=== PATIENT | female | born 1940 | race Caucasian/White ===

== ENCOUNTER 2023-04-06 12:59 | Outpatient (OUT) | payer MEDICARE, MEDICAID, SELFPAY ==
[2023-04-06 14:35] LABS: Albumin Level 3.7 g/dL (3.4-5.0); Anion Gap 14.7; BUN Creatinine Ratio 16.9; Calcium 9.3 mg/dL (8.5-10.1); Carbon Dioxide 25.3 mmol/L (21.0-32.0); Chloride 104 mmol/L (98-107); Chol HDL Ratio 4.7; Cholesterol 249 mg/dL (<=200); Estimated GFR (African America >60 (>=60); Estimated GFR (Non-African Ame >60 (>=60); Glucose 118 mg/dL (74-106); HDL Cholesterol 53 mg/dL (40-60); Phosphorus 3.2 mg/dL (2.6-4.7); Sodium 140 mmol/L (136-145); Triglycerides 195 mg/dL (<=150)
[2023-04-06 14:48] LABS: Creatinine Urine Random 124.31 mg/dL (20.00-300.00); Microalbum Creatinine Ratio Ur 24.9 mg/g (0.0-29.9); Microalbumin Urine Random 3.1 mg/dL (<=30.0)
== END 2023-04-06 13:00 ==
LOC: LAB 12:59
PROVIDERS: PCP Radiology Diagnostic Radiology; Visit Provider Internal Medicine
DX: E11.59 Type 2 diabetes mellitus with other circulatory complications (principal); Z68.36 Body mass index [BMI] 36.0-36.9, adult; E55.9 Vitamin D deficiency, unspecified
CPT/HCPCS: 36415; 80061; 80069; 82043; 82306; 82570

== ENCOUNTER 2023-04-06 13:30 | Outpatient (OUT) | payer MEDICARE, MEDICAID, SELFPAY ==
--- NOTE | 2023-04-06 | VEIN_ITS ---
Patient: MARCELO GOTTLIEB Exam Date: 04/06/2023 : 1940 Gender:F Ordering : DR HANNA RICKETTS M.D. Admission #: [id number] Family : Order #: [id number] CLICK HERE TO VIEW EXAM RADIOLOGY REPORT PROCEDURE: [facility] - OFFICE VISIT INITIAL COMPARISON: None. PROGRESS NOTES: [age] year old female who presents with a 10 year history of dilated bulging veins, leg pain, burning, swelling, muscle cramping, and edema. The patient's right leg symptoms are worse than the left. There has been a progression of symptoms over time. This increases with prolonged dependency. The patient describes an improvement with rest and elevation. The patient denies any signs and symptoms to suggest arterial ischemia. The patient describes a family history of varicose veins on maternal side. The patient has drinking and smoking history of colon no tobacco use or alcohol consumption.. Patient has a past medical history significant for left breast cancer, left knee osteoarthritis, diabetic retinopathy, diabetes skin ulcer, hypertension. The patient denies a history of deep venous thrombus or pulmonary embolus. See separate history and physical for medication list. No prior treatment for varicose or spider veins. Current use of compression stockings. After review of nurse notes, history and physical exam I discussed at length the pathophysiology of venous hypertension and possible treatments, therapies and strategies available. We discussed at length the importance of elevating the lower extremities above the level of the heart, increased physical activity and compression stocking use. Ultrasound venous reflux study performed today was discussed at length with the patient. The report demonstrates abnormally dilated and incompetent great saphenous veins bilaterally, right small saphenous vein, bilateral incompetent building maintenance mechanic veins, and multiple incompetent in dilated branch saphenous varicosities. PHYSICAL EXAM: The right leg demonstrates large varicosities, multiple spider veins, nonhealing skin wound/ ulceration, mild edema, mild skin discoloration. The left leg demonstrates several prominent varicosities, a few scattered spider veins, no ulceration, moderate edema, mild skin discoloration. Both thighs, legs and feet were symmetrically warm to the touch. Good posterior tibial and dorsalis pedis pulses were present bilaterally. IMPRESSION: 1. Bilateral lower extremity venous insufficiency 2. Bilateral lower extremity varicose veins 3. Bilateral lower extremity subcutaneous edema 4. No flow significant arterial disease 5. CEAP: C4a, EC, AP, ID PLAN: 1. Continued use of compression stockings 2. Elevated legs and increased physical activity symptomatic relief 3. Endovenous laser ablation of right great saphenous vein, left great saphenous vein, right small saphenous vein, right mid calf building maintenance mechanic vein near wound, bilateral microfoam chemical ablation for numerous incompetent branch saphenous varicosities, bilateral scleral therapy for reticular and spider veins. Nurse notes, history and physical were reviewed and confirmed, see attached forms. The nurse was present throughout the physical exam and consultation Dictated by: Adonis Martinez M.D. on 04/06/2023 at 16:06 Approved by: Adonis Martinez M.D. on 04/06/2023 at 16:13
--- NOTE | 2023-04-06 13:45 | VEIN_ITS ---
Patient: MARCELO GOTTLIEB Exam Date: 04/06/2023 : 1940 Gender:F Ordering : DR HANNA RICKETTS M.D. Admission #: [id number] Family : Order #: [id number] CLICK HERE TO VIEW EXAM RADIOLOGY REPORT PROCEDURE: VC EXT VENOUS REFLUX GIA LMTD COMPARISON: None. INDICATIONS: Pain due to varicose veins of bilateral legs I83.813 TECHNIQUE: Duplex imaging of the lower extremity to assess the deep and superficial venous system for the presence of deep or superficial venous incompetence and to document the location and severity of disease. The study includes evaluation of the great saphenous vein (GSV), anterior accessory saphenous vein (AASV) and small saphenous vein (SSV). Patient scanned in reverse Trendelenburg and standing. FINDINGS: RIGHT LOWER EXTREMITY: Saphenofemoral Junction Reflux: Yes 11.4mm 0.9 sec GSV: Diam (mm) Reflux/ Time (sec) Proximal Thigh 9.0 Yes 1.4 Mid Thigh 5.1 Yes 1.2 Distal Thigh 3.3 Yes 0.5 Prox Calf 5.2 Yes 3.6 Mid Calf 2.8 Yes 2.1 Saphenopopliteal Junction Reflux: 5.6mm Yes 0.5 SSV: Proximal Calf 5.5 Yes 0.6 Mid Calf 4.0 Yes 0.9 AASV: Proximal Thigh 3.5 No Mid Thigh 2.3 Yes 0.4 Distal Thigh Thrombi: No acute or chronic thrombus. Compressibility: Normal. Flow: Mild deep venous reflux. Preforator: Distal medial lower leg near wound 4.1 mm, 0.6s reflux. Mid medial lower leg 4.6 mm, 0.5s reflux. Tech Note: Incompetent varicose vein off of GSV proximal medial thigh measures 9.5 mm with 1.4s reflux. Medial knee varicose vein measures 6.3 mm with 4.0s reflux. Mid medial lower leg varicose vein off of asphalt paving supervisor measures 5.2 mm with 1.1s reflux. Varicose vein distal posterior medial lower leg measures 3.6 mm with 1.0s reflux. LEFT LOWER EXTREMITY: Saphenofemoral Junction Reflux: Yes 11.2 mm 1.6 sec GSV: Diam (mm) Reflux/Time (sec) Proximal Thigh 9.2 Yes 1.2 Mid Thigh 5.4 Yes 2.8 Distal Thigh 7.1 Yes 3.8 Prox Calf 7.8 Yes 2.7 Mid Calf 5.2 Yes 4.0 Saphenopopliteal Junction Relux: 3.6 mm Yes 0.2 SSV: Proximal Calf 2.7 Yes 0.4 Mid Calf 3.9 Yes 1.9 AASV: Proximal Thigh 3.2 Yes 0.6 Mid Thigh 3.1 Yes 0.5 Distal Thigh Thrombi: No acute or chronic thrombus. Compressibility: Normal. Flow: Mild deep venous reflux. Lubrication Equipment Servicer:Medial ankle 2.9 mm, 1.6s reflux. Dist/medial lower leg 3.4mm, 3.8s reflux. Mid/medial lower leg 3.4mm, 3.8s reflux. Mid post calf 3.2mm, 0.6s reflux. Tech Note: Incompetent varicose vein mid medial lower leg measures 4.9 mm with 1.6s reflux. Proximal medial lower leg varicose vein measures 4.0 mm with 0.4s reflux. Varicose vein distal anterior lower leg measures 4.3 mm with 1.1s reflux. Distal medial lower leg varicose vein measures 4.0 mm with 0.6s reflux. CONCLUSION: 1. Abnormally dilated and incompetent bilateral great saphenous veins and right small saphenous vein. 2. Numerous abnormally dilated and incompetent branch saphenous varicosities bilaterally. 3. Several abnormally dilated incompetent asphalt paving supervisor veins bilaterally. 4. Consultation for endovenous ablation is recommended. Dictated by: Adonis Martinez M.D. on 04/06/2023 at 15:07 Approved by: Adonis Martinez M.D. on 04/06/2023 at 16:06
== END 2023-04-06 13:31 ==
LOC: VC 13:30
PROVIDERS: PCP Radiology Diagnostic Radiology; Visit Provider Radiology Diagnostic Radiology
DX: I83.813 Varicose veins of bilateral lower extremities with pain (principal)
CPT/HCPCS: 93970; G0463

== ENCOUNTER 2023-10-05 13:34 | Outpatient (OUT) | payer MEDICARE, MEDICAID, SELFPAY ==
--- NOTE | 2023-10-05 13:50 | US_ITS ---
The [address] [address] Patient Name: MARCELO GOTTLIEB MRN: [id number] date: 1940 Sex: F Assigned Patient Location: LAB Current Patient Location: LAB Accession/Order Number: [id number] Exam Date: 10/05/2023 13:51 Report Date: 10/05/2023 15:26 At the request of: JACK NAZARIO Procedure: US right upper quadrant Ultrasound abdomen right upper quadrant HISTORY: Right Upper Quadrant Pain R10.11 COMPARISON: None. TECHNIQUE: Dedicated transabdominal right upper quadrant ultrasound was performed. FINDINGS: The gallbladder is nondistended and without focal wall abnormality. There is no discrete gallstone identified. No sludge is seen. The gallbladder wall measures 2 mm in thickness. No pericholecystic fluid is seen, and the sonographic Ingram's sign is negative. The proximal common bile duct measures 6 mm in diameter. There is no intrahepatic bile duct dilatation. There is diffusely increased echogenicity throughout the entire liver. No discrete liver lesion is seen. Normal hepatopedal flow the main portal vein. The visualized pancreas is normal. Portions of the pancreas are obscured by overlying bowel gas. The right kidney measures 12.7 x 7.0 x 5.9 cm with cortical thinning. There is a small renal sinus cyst at the lower pole measuring 1.1 cm. There is no hydronephrosis in the right kidney. There is no fluid in the right upper quadrant. US/US right upper quadrant IMPRESSION: 1. Normal gallbladder. There are no stones or sludge, and no sonographic evidence of acute cholecystitis. 2. The diffuse fatty infiltration of the liver and normal caliber common bile duct at 6 mm. 3. Right kidney with a 1.1 cm renal sinus cyst and diffuse cortical thinning. No hydronephrosis. Electronically authenticated by: SIMRAN BARRY Date: 10/05/2023 15:26
--- NOTE | 2023-10-05 13:50 | XR_ITS ---
The [address] [address] Patient Name: MARCELO GOTTLIEB MRN: [id number] date: 1940 Sex: F Assigned Patient Location: LAB Current Patient Location: Accession/Order Number: [id number] Exam Date: 10/05/2023 14:55 Report Date: 10/06/2023 22:40 At the request of: JACK NAZARIO Procedure: XR lumbar spine 6V w bending EXAM: XR lumbar spine 6V w bending HISTORY: Acute Right Sided Low Back Pain M54.41 COMPARISON: None. TECHNIQUE: 7 views lumbar spine with flexion and extension FINDINGS: There are 5 nonrib-bearing lumbar-type vertebral bodies. Likely pseudoarticulation of right L5 transverse process with the sacral alae. Vertebral body heights and sagittal alignment are preserved. No spondylolisthesis on dynamic imaging. No pars defects. Multilevel degenerative disc disease most severe at L2-3 and L5-S1. Incidental note of aortic vascular calcification. Diffuse facet arthrosis at the lower lumbar levels. XR/XR lumbar spine 6V w bending IMPRESSION: Multilevel degenerative disc disease most severe at L2-3 and L5-S1. No spondylolisthesis on dynamic imaging. Electronically authenticated by: GEORGE OSEI Date: 10/06/2023 22:40
[2023-10-05 14:10] LABS: Basophils Percent Auto 0.3 % (0.2-2.0); Eosinophils Absolute Auto 0.2 10^3/uL (0.0-0.7); Eosinophils Percent Auto 1.5 % (0.9-7.0); Hematocrit 44.2 % (36.0-48.0); Hemoglobin 13.9 g/dL (12.0-16.0); Immature Granulocytes Abs Auto 0.02 10^3/uL (0.00-0.03); Immature Granulocytes Pct Auto 0.2 % (0.0-0.5); Lymphocytes Absolute Auto 2.7 10^3/uL (1.2-3.8); Lymphocytes Percent Auto 24.9 % (20.5-60.0); Mean Corpuscular HGB Conc 31.4 g/dL (29.9-35.2); Mean Corpuscular Volume 95.5 fL (81.0-99.0); Mean Platelet Volume 10.1 fL (9.5-13.5); Monocytes Absolute Auto 0.9 10^3/uL (0.3-0.8); Neutrophils Absolute Auto 6.9 10^3/uL (1.4-6.5); Neutrophils Percent Auto 65.1 % (43.0-75.0); Platelet Count 226 10^3/uL (150-450); Red Blood Count 4.63 10^6/uL (4.20-5.40); Red Cell Distribution Width 12.7 % (11.0-15.0); White Blood Count 10.7 10^3/uL (4.0-11.0)
[2023-10-05 15:30] LABS: Alanine Aminotransferase 19 U/L (14-59); Albumin Level 3.7 g/dL (3.4-5.0); Alkaline Phosphatase 95 U/L (46-116); Anion Gap 14.8; Aspartate Amino Transferase 16 U/L (15-37); Bilirubin Total 0.5 mg/dL (0.2-1.0); Calcium 9.2 mg/dL (8.5-10.1); Carbon Dioxide 25.3 mmol/L (21.0-32.0); Chloride 106 mmol/L (98-107); Estimated GFR (African America >60 (>=60); Estimated GFR (Non-African Ame >60 (>=60); Globulin 3.8 g/dL; Glucose 99 mg/dL (74-106); Potassium 4.1 mmol/L (3.5-5.1); Sodium 142 mmol/L (136-145); Total Protein 7.5 g/dL (6.4-8.2)
== END 2023-10-05 13:35 | disposition home or self-care (01) ==
LOC: LAB 13:34
PROVIDERS: PCP Internal Medicine; Visit Provider Internal Medicine
DX: E11.65 Type 2 diabetes mellitus with hyperglycemia (principal); I10 Essential (primary) hypertension; R10.11 Right upper quadrant pain; M54.41 Lumbago with sciatica, right side; N28.1 Cyst of kidney, acquired; M51.36 Other intervertebral disc degeneration, lumbar region
CPT/HCPCS: 36415; 72114; 76705; 80053; 85025

== ENCOUNTER 2024-02-06 13:26 | Outpatient (OUT) | payer MEDICARE, MEDICAID, SELFPAY ==
--- NOTE | 2024-02-06 13:30 | MR_ITS ---
[place] [id number] Patient Name: MARCELO GOTTLIEB MRN: [id number] date: 1940 Sex: F Assigned Patient Location: MRI Current Patient Location: MRI Accession/Order Number: [id number] Exam Date: 02/06/2024 14:00 Report Date: 02/06/2024 15:26 At the request of: JACK NAZARIO Procedure: MR lumbar spine wo con EXAMINATION: MR lumbar spine wo con HISTORY: Spondylosis Of Lumbosacral Spine, Low Back Pain COMPARISON: No relevant comparison available. TECHNIQUE: A variety of imaging planes and parameters were utilized for visualization of suspected pathology. FINDINGS: For the purposes of numbering, sagittal T2 image # 9 extends from the T11 vertebral body superiorly to the S2-S3 level inferiorly. PARASPINAL AREA: Normal with no visible mass. BONES: Normal alignment with no acute fracture, spondylolisthesis or bone edema CORD/CAUDA EQUINA: Normal caliber, contour, and signal intensity. 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 L1-L2: No significant disc/facet abnormality, spinal stenosis, or foraminal stenosis. L2-L3: Mild to moderate disc space narrowing with endplate sclerosis. Moderate diffuse disc/osteophyte complex with posterior central disc herniation of the protrusion type extending up to 4 mm. No central or foraminal stenosis L3-L4: Disc desiccation. Moderate posterior disc/osteophyte complex. Severe ligamentum flavum hypertrophy and facet osteoarthropathy. Moderate to severe trefoil narrowing of the central canal with crowding of the nerve roots, best seen on axial image 22. Mild right foraminal stenosis. No left foraminal stenosis L4-L5: Asymmetric disc space narrowing with disc collapse along the left with endplate sclerosis. Moderate diffuse disc/osteophyte complex. Moderate to severe ligamentum flavum hypertrophy and facet osteoarthropathy. No significant central canal stenosis. Moderate right and mild left foraminal stenosis L5-S1: No significant disc/facet abnormality, spinal stenosis, or foraminal stenosis. MR/MR lumbar spine wo con IMPRESSION: Moderate to severe central canal stenosis at L3-L4 Mild right L3-L4 foraminal stenosis Moderate right and mild left L4-L5 foraminal stenosis Electronically authenticated by: HANNA RICKETTS Date: 02/06/2024 15:26
--- OUTSIDE RECORDS SUMMARY | 2024-02-06 13:39 | XMS_ITS | CCD ---
Author Organization [facility] Care Team Providers Care Repair Tech Name Role Phone TIMUR, DR SANTIAGO Attending Unavailable BALL, DR SANTIAGO Referring Unavailable BALL, DR SANTIAGO Admitting Unavailable BALL, DR SANTIAGO Primary Care Unavailable BALL, DR SANTIAGO Consulting Unavailable ZIEBER, DR MARIXA Tilley Consulting Unavailable MARCOS, TYLOR Attending Unavailable MARCOS, TYLOR Admitting Unavailable MARCOS, TYLOR Consulting Unavailable BALL, DR SANTIAGO Primary Care Unavailable BALL, DR SANTIAGO Consulting Unavailable BALL, DR SANTIAGO Attending Unavailable BALL, DR SANTIAGO Admitting Unavailable BALL, DR SANTIAGO Primary Care Unavailable Timur, Nilton Unavailable Allergies Allergy Classification Reported Allergen(s) Allergy Type Date of Onset Reaction(s) Facility (1 source) Desonide Drug Allergy 10-14-20 13 [facility] (1 source) Latex Drug allergy (disorder) 04-27-20 17 [facility] (1 source) Silicone Drug allergy (disorder) 04-27-20 17 [facility] (8 sources) Adhesive Bandages Drug allergy Unknown [employer] Other (7 sources) atorvastatin Drug Allergy 01-23-20 24 Unknown, Unknown Reaction [facility] (7 sources) Cephalexin Drug Allergy 01-23-20 24 Unknown, Unknown Reaction [facility] (6 sources) Singulair *ANTIASTHMATIC AND BRONCHODILATOR AGENTS Propensity to adverse reactions Unknown [employer] Other (1 source) Adhesive agent Allergy to substance 01-23-20 Unknown Reaction [facility] (1 source) Singulair *ANTIASTHMATIC AND B Allergy to substance 01-20-20 Unknown Reaction [facility] Medications Current Medications Medication Drug Class(es) Dates Sig (Normalized) Sig (Original) acetaminophen 325 mg oral capsule (9 sources) Start: 01-20-2024 take 1 capsule by mouth four times daily Acetaminophen (Tylenol) 325 mg capsule Active 325 MG PO Four times daily January 20, 2024 12:00am Tylenol Active Allergy (8 sources) Allergy Active celecoxib 200 mg oral capsule (5 sources) Nonsteroidal Anti-inflammatory Drug Start: 01-20-2024 take 200 mg by mouth once daily Celecoxib Active 200 MG PO Daily January 20, 2024 12:00am Start: 09-29-2023 [address] [facility] every twenty-four hours Celecoxib 200 MG 1 capsule with food Orally Once a day for 30 days Sep, Active cetirizine hydrochloride 10 mg oral tablet (1 source) Histamine-1 Receptor Antagonist Start: 01-20-2024 take 1 tablet by mouth once daily Cetirizine (24hour Allergy) 10 mg tablet Active 10 MG PO Daily January 20, 2024 12:00am Dietary Manage Prod - Edge Molder (8 sources) Dietary Manage P tessa - Edge Molder Active Dietary Supplement (1 source) Start: 01-20-2024 Dietary Supplement Active CAP PO January 20, 2024 12:00am diphenhydrAMINE hydrochloride 25 mg oral tablet (9 sources) Histamine-1 Receptor Antagonist Start: 01-20-2024 take 1 tablet by mouth once daily at bedtime Diphenhydramine Hcl (Benadryl Allergy) 25 mg tablet Active 25 MG PO Daily at bedtime January 20, 2024 12:00am Benadryl Active docusate sodium 50 mg / sennosides, penitentiary 8.6 mg oral tablet (1 source) Start: 01-20-2024 take 1 tablet by mouth once daily at bedtime Sennosides-Docusate Sodium (Stimulant Laxative Plus) 8.6-50 mg tablet Active 1 TAB-CAP PO Daily at bedtime January 20, 2024 12:00am 0.5 ml dulaglutide 1.5 mg/ml auto-injector (8 sources) GLP-1 Receptor Agonist Start: 01-20-2024 Dulaglutide (Trulicity) 0.75 mg/0.5 mL pen injector Active 0.75 MG SUBCUT every week January 20, 2024 12:00am Trulicity 0.75 M G/0.5ML as directed Subcutaneous weekly Active fluticasone propionate 0.05 mg/actuat metered dose nasal spray (9 sources) Corticosteroid Start: 01-20-2024 Fluticasone Pr opionate Active 1 SPRAY INTRANASAL Daily January 20, 2024 12:00am Start: 12-08-2022 take 1 spray(s) nasa l route once daily Fluticasone Propionate 50 MCG/ACT 1 spray in each nostril Nasally Once a day for 30 day(s) Nov, Active Start: 12-08-2022 take 1 spray(s) nasa l route once daily Fluticasone Propionate 50 MCG/ACT 1 spray in each nostril Nasally Once a day for 30 day(s) Nov, Active furosemide 20 mg oral tablet (1 source) Loop Diuretic take 1 tablet by mouth once daily Furosemide 20 MG 1 tablet Orally Once a day Active hydroCHLOROthiazide 12.5 mg oral tablet (6 sources) Thiazide Diuretic Start: take 12.5 mg by mouth once daily Hydrochlorothiazide Active 12.5 MG PO Daily January 20, 2024 12:00am take 1 tablet by mouth once zee y hydroCHLOROthiazide 12.5 mg TAKE ONE TABLET BY MOUTH DAILY Active 1.5 ml insulin glargine 300 unt/ml pen injector (8 sources) Insulin Analog Start: 02-24-2017 Toujeo SoloSta r 300 UNIT/ML 45 units Subcutaneous at HS February, Active Start: 02-24-2017 inject 25 [IU] by moe bcutaneous injection at bedtime Toujeo SoloStar 300 UNIT/ML 25 units Subcutaneous at HS February, Active Insulin Glargine U-300 Conc (1 source) Start: 01-20-2024 inject 45 [IU] by subcutaneous injection once daily at bedtime Insulin Glargine U-300 Conc Active 45 UNIT SUBCUT Daily at bedtime January 20, 2024 12:00am 3 ml insulin lispro 100 unt/ml pen injector (8 sources) Insulin Analog Start: 02-21-2017 inject 100 [IU] by subcutaneous injection before mealtime HumaLOG KwikPen 100 UNIT/ML 8-10-12 units ac plus ISS#2 Subcutaneous February, Active Insulin Lispro (Humalog Kwikpen Insulin) 100 unit/mL insulin pen (1 source) Start: 03-29-2024 inject 1 dose by subcutaneous injection before mealtime Insulin Lispro (Humalog Kwikpen Insulin) 100 unit/mL insulin pen Active 1 sliding scale dose SUBCUT Use as Directed January 20, 2024 12:00am 8-10-12 units ac plus ISS#2 Subcutaneous lactase 3000 unt chewable tablet (9 sources) Start: 01-20-2024 take 1 tablet by mouth once Lactase (Lactaid) 3,000 unit tablet Active 3000 UNIT PO 3x/Day before meals January 20, 2024 12:00am administer with first bite of dairy food Lactaid Active linaclotide 0.072 mg oral capsule (8 sources) Guanylate Cyclase-C Agonist Start: 01-20-2024 take 72 ug by mouth once daily Linaclotide Active 72 MCG PO Daily January 20, 2024 12:00am Start: 04-15-2023 Linzess 72 MCG 1 capsule at least 30 minutes before the first meal of the day on an empty stomach Orally Once a day Mar, Active Start: 04-15-2023 Linzess 72 MCG 1 capsule at least 30 minutes before the first meal of the day on an empty stomach Orally Once a day Mar, Active linagliptin 5 mg oral tablet (1 source) Dipeptidyl Peptidase 4 Inhibitor Start: 02-21-2017 take 1 tablet by mouth every twenty-four hours Tradjenta 5 MG 1 tablet Orally Once a day for 30 day(s) February, Active lisinopril 5 mg oral tablet (9 sources) Angiotensin Converting Enzyme Inhibitor Start: 01-20-2024 take 5 mg by mouth once daily Lisinopril Active 5 MG PO Daily January 20, 2024 12:00am take 1 tablet by leonard th every twenty-four hours Lisinopril 5 MG 1 tablet Orally Once a day Active mupirocin 0.02 mg/mg topical ointment (9 sources) RNA Synthetase Inhibitor Antibacterial Start: 01-20-2024 Mupirocin Active 1 APPLIC TOPICAL Twice daily January 20, 2024 12:00am Start: 12-08-2022 Mupirocin 2 % 1 application Externally Twice a day for 10 days Nov, Active potassium chloride 10 meq extended release oral tablet (9 sources) Start: 01-20-2024 take 10 mEq by mouth once daily Potassium Chloride Active 10 MEQ PO Daily January 20, 2024 12:00am take 1 tablet by leonard th every twenty-four hours Potassium Chloride ER 10 MEQ 1 tablet with food Orally Once a day Active Red Yeast Rice (8 sources) Red Yeast Rice A ctive red yeast rice 600 mg oral tablet (1 source) Start: 01-20-2024 take 600 mg by mouth once daily Red Yeast Rice Active 600 MG PO Daily January 20, 2024 12:00am give with meal/snack Stimulant Laxative (8 sources) Stimulant Laxati ve Active Completed/Discontinued Medications Medication Drug Class(es) Dates Sig (Normalized) Sig (Original) amoxicillin 875 mg oral tablet (8 sources) Penicillin-class Antibacterial take 1 tablet by mouth every twelve hours Amoxicillin 875 MG 1 tablet Orally every 12 hrs Not-Taking/PRN Problems Active Problems Problem Classification Problem Date Documented Da te Episodic/Chronic Abdominal pain (3 sources) Epigastric pain; Translations: [Epigastric pain] Onset: 06-21-2018 Episodic Acute bronchitis (2 sources) Acute bronchitis; Translations: [Acute bronchitis due to other specified organisms] Episodic Administrative/social admission (1 source) Dietary counseling and surveillance; Translations: [DIETARY COUNSELING AND SURVEILLANCE] Onset: 12-29-2021 Episodic Calculus of urinary tract (1 source) H/O: urinary stone; Translations: [Personal history of urinary calculi] Episodic Cancer of breast (2 sources) Carcinoma in situ of breast; Translations: [Unspecified type of carcinoma in situ of unspecified breast] Onset: 05-20-2014 Chronic Chronic kidney disease (1 source) Chronic kidney disease stage 3; Translations: [Chronic kidney disease, stage 3 unspecified] Onset: 10-10-2018 Chronic Chronic ulcer of skin (17 sources) Non-pressure chronic ulcer of unspecified part of right lower leg with unspecified severity; Translations: [Chronic ulcer of skin of ankle] Chronic Diabetes mellitus with complications (20 sources) Type 2 diabetes mellitus with other circulatory complications; Translations: [Type 2 diabetes mellitus with hyperglycemia] Onset: 05-18-2021 Chronic Diseases of white blood cells (1 source) Leukocytosis; Translations: [Elevated white blood cell count, unspecified] Onset: 04-27-2017 Chronic Disorders of lipid metabolism (16 sources) Mixed hyperlipidemia; 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 ] Onset: 10[birth year]24-1961 Chronic Essential hypertension (20 sources) Essential (primary) hypertension; Translations: [Essential hypertension] Onset: 05-21-2021 Chronic Fluid and electrolyte disorders (1 source) Hypokalemia; Translations: [Hypokalemia] Episodic Genitourinary symptoms and ill-defined conditions (14 sources) Mixed urinary incontinence; Translations: [Mixed incontinence] Chronic Genitourinary symptoms and ill-defined conditions (2 sources) Dysuria; Translations: [Dysuria] Onset: 06-20-2017 Episodic Immunizations and screening for infectious disease (1 source) Vaccination given; Translations: [Encounter for immunization] Episodic Malaise and fatigue (8 sources) Fatigue; Translations: [Other fatigue] Episodic Menopausal disorders (1 source) Primary ovarian failure; Translations: [Other primary ovarian failure] Onset: 02-20-2018 Chronic Neoplasms of unspecified nature or uncertain behavior (2 sources) 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; 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] Onset: 03-01-2017 Episodic Nutritional deficiencies (9 sources) Vitamin D deficiency, unspecified; Translations: [Vitamin D deficiency] Onset: 12-29-2021 Chronic Osteoarthritis (17 sources) Osteoarthritis of knee; Translations: [Unilateral primary osteoarthritis, left knee] Chronic Other aftercare (8 sources) Long-term current 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; Translations: [prison (current) 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] Episodic Other aftercare (3 sources) intermission coordinator (current) 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 Episodic Other aftercare (1 source) Long-term current use of drug therapy; Translations: [Other prison (current) drug therapy] Episodic Other diseases of veins and lymphatics (1 source) Lymphedema; Translations: [Lymphedema, not elsewhere classified] Chronic Other diseases of veins and lymphatics (1 source) Venous insufficiency of leg; Translations: [Venous insufficiency (chronic) (peripheral)] 01-21-2024 Episodic Other diseases of veins and lymphatics (1 source) Venous insufficiency (chronic) (peripheral); Translations: [Venous (peripheral) insufficiency, unspecified] 01-23-2024 Episodic Other gastrointestinal disorders (8 sources) Chronic idiopathic constipation; Translations: [Chronic idiopathic constipation] 01-20-2024 Chronic Other gastrointestinal disorders (3 sources) Chronic idiopathic constipation Chronic Other hematologic conditions (1 source) Splenic cyst; Translations: [Cyst of spleen] Episodic Other injuries and conditions due to external causes (1 source) History of fall; Translations: [History of falling] Episodic Other non-epithelial cancer of skin (8 sources) Squamous cell carcinoma of skin of face; Translations: [Squamous cell carcinoma of skin of unspecified parts of face] Onset: 09-01-2020 Episodic Other nutritional; endocrine; and metabolic disorders (8 sources) Morbid obesity; Translations: [Morbid (severe) obesity due to excess calories] Chronic Other nutritional; endocrine; and metabolic disorders (8 sources) Body mass index 40+ - severely obese; Translations: [Body mass index (BMI) 40.0-44.9, adult] Chronic Other nutritional; endocrine; and metabolic disorders (7 sources) Severe obesity; Translations: [Morbid (severe) obesity due to excess calories] Chronic Other nutritional; endocrine; and metabolic disorders (7 sources) Body mass index 30+ - obesity; Translations: [Body mass index (BMI) 38.0-38.9, adult] Chronic Other nutritional; endocrine; and metabolic disorders (3 sources) Morbid (severe) obesity due to excess calories Chronic Other nutritional; endocrine; and metabolic disorders (3 sources) Body mass index (BMI) 38.0-38.9, adult Chronic Other nutritional; endocrine; and metabolic disorders (1 source) Obesity; Translations: [Obesity, unspecified] Chronic Other nutritional; endocrine; and metabolic disorders (1 source) Obesity caused by energy imbalance; Translations: [Morbid (severe) obesity due to excess calories] 01-20-2024 Chronic Other screening for suspected conditions (not mental disorders or infectious disease) (2 sources) Encounter for screening mammogram for malignant neoplasm of breast Episodic Other skin disorders (5 sources) Localized swelling, mass and lump, left upper limb; Translations: [LOC SWELL MASS LUMP LT UPPER LIMB] Onset: 12-30-2021 Episodic Other skin disorders (9 sources) Alopecia; Translations: [Nonscarring hair loss, unspecified] 01-20-2024 Episodic Other upper respiratory disease (9 sources) Vasomotor rhinitis; Translations: [Vasomotor rhinitis] 01-20-2024 Chronic Retinal detachments; defects; vascular occlusion; and retinopathy (1 source) Venous retinal branch occlusion; Translations: [Tributary (branch) retinal vein occlusion, unspecified eye, stable] Chronic Spondylosis; intervertebral disc disorders; other back problems (10 sources) Cervical spondylosis without myelopathy; Translations: [Spondylosis without myelopathy or radiculopathy, cervical region] Chronic Spondylosis; intervertebral disc disorders; other back problems (7 sources) Acute back pain with sciatica; Translations: [Lumbago with sciatica, right side] Episodic Thyroid disorders (9 sources) Non-toxic nodular goiter; Translations: [Nontoxic goiter, unspecified] 01-20-2024 Chronic Unclassified (1 source) Exposure to acute respiratory syndrome coronavirus 2; Translations: [Contact with and (suspected) exposure to COVID-19] Varicose veins of lower extremity (17 sources) 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; Translations: [Varicose veins of right lower extremity with both ulcer of ankle and inflammation] 01-20-2024 Episodic Past or Other Problems Problem Classification Problem Date Documented Da te Episodic/Chronic Cancer of breast (1 source) Personal history of primary malignant neoplasm of breast; Translations: [Personal history of malignant neoplasm of breast] Onset: 10-24-2005 Episodic Cardiac dysrhythmias (1 source) Palpitations; Translations: [Palpitations] Onset: 12-25-2017 Episodic Nonspecific chest pain (1 source) Chest pain; Translations: [Other chest pain] Onset: 06-20-2018 Episodic Other aftercare (1 source) Other terminal makeup operator (current) drug therapy; Translations: [OTH BOAT JOINER HELPER CURRENT DRUG THERAPY] Onset: 05-21-2021 Episodic Other lower respiratory disease (1 source) Dyspnea; Translations: [Other forms of dyspnea] Onset: 06-20-2018 Episodic Residual codes; unclassified (1 source) Edema, generalized; Translations: [Generalized edema] Onset: 09-12-2018 Episodic Urinary tract infections (1 source) Urinary tract infectious disease; Translations: [Urinary tract infection, site not specified] Onset: 04-27-2017 Episodic Results Test Name Value Interpretation Reference Range Facility US EXT NON VASC LIMITED LTon 12-30-2021 US EXT NON VASC LIMITED LT EXAMINATION: US EXT NON VASC LIMITED LT HISTORY: Mass of axilla ; occasional swelling and pain within the right axilla bilateral mastectomy and right axilla fatty tumor removal. COMPARISON: No relevant comparison available. FINDINGS: Ultrasound evaluation of the right axilla reveals no mass, fluid collection, enlarged lymph nodes, or suspicious findings. IMPRESSION: 1. No abnormal or suspicious findings within the right axilla to account for patient's symptoms. Electronically authenticated by: MARIXA HERNÁNDEZ Date: 2021-12-30 15:18 Normal [facility] C-PEPTIDE, SERUMon 2 C-Peptide, Serum 2.3 ng/mL Normal 1.1-4.4 [facility] Comment on above: Result Comment: C-Pe ptide reference interval is for fasting patients. Performed By: #### C PEPT #### [facility] [address] [address] [address] Heidi Knapp LIPID PROFILEon 12-25-2021 CHOL-HDL RATIO NORM SEE BELOW Normal [facility] Comment on above: Result Comment: 3.3 - 4.4 LOW RISK 4.4 - 7.1 AVERAGE RISK 7.1 - 11.0 MODERATE RISK >11.0 HIGH RISK Performed By: #### R ENAL, LIPID #### [facility] [address] [address] [address] Heidi Knapp Cholesterol [Mass/Vol] 241 mg/dL Critically high <=200 [facility] Comment on above: Performed By: #### R ENAL, LIPID #### [facility] [address] [address] [address] Heidi Knapp Cholesterol in HDL [Mass/Vol] 53 mg/dL Normal [facility] Comment on above: Performed By: #### R ENAL, LIPID #### [facility] [address] [address] [address] Heidi Knapp Cholesterol in LDL [Mass/Vol] 139.8 mg/dL Normal [facility] Comment on above: Performed By: #### R ENAL, LIPID #### [facility] [address] [address] [address] Heidi Knapp Cholesterol.total/Chol esterol in HDL [Mass ratio] 4.5 {ratio} Normal [facility] Comment on above: Performed By: #### R ENAL, LIPID #### [facility] [address] [address] [address] Heidi Knapp HDL NORMAL > or = 60 mg/dl - LO W CARDIOVASCULAR RISK <40 mg/dl - HIGH CARDIOVASCULAR RISK Normal [facility] Comment on above: Performed By: #### R ENAL, LIPID #### [facility] [address] [address] [address] Heidi Knapp LDL CALC NORMAL SEE BELOW Normal [facility] Comment on above: Result Comment: <100 mg/dl OPTIMAL 100 - 129 mg/dl NEAR OR ABOVE OPTIMAL 130 - 159 mg/dl BORDERLINE HIGH 160 - 189 mg/dl HIGH >190 mg/dl VERY HIGH Performed By: #### R ENAL, LIPID #### [facility] [address] [address] [address] Heidi Knapp Triglyceride [Mass/Vol] 241 mg/dL Critically high <=150 [facility] Comment on above: Performed By: #### R ENAL, LIPID #### [facility] [address] [address] [address] Heidi Knapp VLDL CALC 48.2 mg/dL Normal [facility] Comment on above: Performed By: #### R ENAL, LIPID #### [facility] [address] [address] [address] Heidi Knapp MICROALB CREAT RATIO RANDOMo n 12-25-2021 mALB 6.9 mg/L Normal <=30.0 [facility] Comment on above: Performed By: #### M CRR #### [facility] [address] [address] [address] Heidi Knapp MALB CR RATIO 31.4 mg/g Critically high 0.0-29.9 [facility] Comment on above: Performed By: #### M CRR #### [facility] [address] [address] [address] Heidi Knapp MALB CR RATIO RANGE SEE BELOW Normal [facility] Comment on above: Result Comment: NO M ICROALBUMINURIA 0-29 MG/G CLINICAL MICROALBUMINURIA 30-300 MG/G MACROALBUMINURIA >300 MG/G Performed By: #### M CRR #### [facility] [address] [address] [address] Heidi Knapp URINE CREAT 219.98 mg/dL Normal 20.00-300.00 [facility] Comment on above: Performed By: #### M CRR #### [facility] [address] [address] [address] Heidi Knapp RENAL FUNCTION PANELon 12-25 Albumin [Mass/Vol] 3.9 g/dL Normal 3.5-5.0 [facility] Comment on above: Performed By: #### R FRANCE, LIPID ####[facility] [address] [address]DrMarine Knapp Calcium [Mass/Vol] 9.4 mg/dL Normal 8.4-10.2 [facility] Comment on above: Performed By: #### Jarek HOUGH LIPID ####[facility] [address] [address]DrMarine Knapp Chloride [Moles/Vol] 104 mmol/L Normal 98-107 [facility] Comment on above: Performed By: #### Jarek HOUGH LIPID ####[facility] [address] [address]Dr. Heidi Knapp CO2 [Moles/Vol] 28.4 mmol/L Normal 22.0-30.0 [facility] Comment on above: Performed By: #### Jarek HOUGH LIPID ####[facility] [address] [address]DrMarine Knapp Creatinine [Mass/Vol] 0.82 mg/dL Normal 0.52-1.04 [facility] Comment on above: Performed By: #### Jarek HOUGH, LIPID ####[facility] [address] [address]DrMarine Knapp EGFR-AF PALESTINIAN >60 Normal >=60 [facility] Comment on above: Performed By: #### R ENJENNIFER, LIPID ####[facility] [address] [address]DrMarine Knapp EGFR-NON AF PALESTINIAN >60 Normal >=60 [facility] Comment on above: Performed By: #### R FRANCE, LIPID ####[facility] [address] [address]Dr. Heidi Knapp Glucose [Mass/Vol] 125 mg/dL Critically high 74-106 T [facility] Comment on above: Performed By: #### R FRANCE, LIPID ####[facility] [address] [address]Dr. Heidi Knapp Phosphate [Mass/Vol] 2.9 mg/dL Normal 2.5-4.5 [facility] Comment on above: Performed By: #### Jarek HOUGH, LIPID ####[facility] [address] [address]Dr. Heidi Knapp Potassium [Moles/Vol] 4.7 mmol/L Normal 3.4-5.0 [facility] Comment on above: Performed By: #### Jarek HOUGH LIPID ####[facility] [address] [address]Dr. Heidi Knapp Sodium [Moles/Vol] 140 mmol/L Normal 137-145 [facility] Comment on above: Performed By: #### Jarek HOUGH LIPID ####[facility] [address] [address]Dr. Heidi Knapp Urea nitrogen [Mass/Vol] 15.0 mg/dL Normal 7.0-17.0 [facility] Comment on above: Performed By: #### Jarek HOUGH LIPID ####[facility] [address] [address]Dr. Heidi Knapp VITAMIN D 25 OHon 12-25-2021 VIT D 25-OH 23.8 ng/mL Normal [facility] Comment on above: Performed By: #### V ITAD #### [facility] [address] [place] [address] Dr. Heidi Knapp VIT D RANGES SEE BELOW Normal [facility] Comment on above: Result Comment: <20 ng/mL Vit D deficient 20 - <30 ng/mL Vit D insufficient 30 - 100 ng/mL Vit D sufficient >100 ng/mL Potential Toxicity Performed By: #### V ITAD #### [facility] [address] [address] [address] Heidi Knapp CBC AUTO DIFFon 05-18-2021 BASO # 0.0 103/ul Normal 0.0-0.1 [facility] [facility] Comment on above: Performed By: #### C BC #### [facility] [address] [place], [place] [id number] Marianela Kena Basophils/100 WBC (Bld) 0.2 % Normal 0.2-2.0 [facility] Comment on above: Performed By: #### C BC #### [facility] [address] [place], [place] [id number] Marianela Kena EO # 0.1 103/ul Normal 0.0-0.7 [facility] Comment on above: Performed By: #### C BC #### [facility] [address] [place] [address] Marianela Kena Eosinophils/100 WBC (Bld) 0.9 % Normal 0.9-7.0 [facility] Comment on above: Performed By: #### C BC #### [facility] [address] [place] [address] Marianela Kena Erythrocyte distribution width (RBC) [Ratio] 12.5 % Normal 11.0-15.0 [facility] Comment on above: Performed By: #### C BC #### [facility] [address] [place], [place] [id number] Marianela Kena Hematocrit (Bld) [Volume fraction] 42.0 % Normal 36.0-48.0 [facility] Comment on above: Performed By: #### C BC #### [facility] [address] [place] [address] Marianela Kena Hemoglobin (Bld) [Mass/Vol] 13.8 g/dL Normal 12.0-16.0 [facility] Comment on above: Performed By: #### C BC #### [facility] [address] [place] [address] Marianela Kena IG # 0.03 10e3/ul Normal 0.00-0.03 [facility] Comment on above: Performed By: #### C BC #### [facility] [address] [place] [address] Marianela Kena IG % 0.3 % Normal 0.0-0.5 [facility] Comment on above: Performed By: #### C BC #### [facility] [address] [place], [place] [address] Marianela Kena LYMPH # 3.2 103/ul Normal 1.2-3.8 [facility] Comment on above: Performed By: #### C BC #### [facility] [address] [id number] Marianela Kena Lymphocytes/100 WBC (Bld) 29.0 % Normal 20.5-60.0 [facility] Comment on above: Performed By: #### C BC #### [facility] [address] [place], [place] [phone] Marianela Kena MANUAL DIFF REQ NO Normal [facility] Comment on above: Performed By: #### C BC #### [facility] [address] [place] [address] Marianela Kena MCH (RBC) [Entitic mass] 30.5 pg Normal 26.7-34.0 [facility] Comment on above: Performed By: #### C BC #### [facility] [address] [place], [place] [phone] Marianelayennifer Arten MCHC (RBC) [Mass/Vol] 32.9 g/dL Normal 29.9-35.2 [facility] Comment on above: Performed By: #### C BC #### [facility] [address] [place], [place] [phone] Marianela Kena MCV (RBC) [Entitic vol] 92.9 fL Normal 81.0-99.0 [facility] Comment on above: Performed By: #### C BC #### [facility] [address] [place], [place] [address] Marianela Kena MONO # 0.9 103/ul Critically high 0.3-0.8 [facility] Comment on above: Performed By: #### C BC #### [facility] [address] [place], [place] [address] Marianela Kena Monocytes/100 WBC (Bld) 8.4 % Normal 1.7-12.0 [facility] Comment on above: Performed By: #### C BC #### [facility] [address] [place], [place] [address] Marianelayennifer Arten NEUT # 6.8 103/ul Critically high 1.4-6.5 [facility] Comment on above: Performed By: #### C BC #### [facility] [address] [place], [place] [address] Marianela Kena Neutrophils/100 WBC (Bld) 61.2 % Normal 43.0-75.0 [facility] Comment on above: Performed By: #### C BC #### [facility] [address] [place], [place] [address] Marianela Kena Platelet mean volume (Bld) [Entitic vol] 9.8 fL Normal 9.5-13.5 [facility] Comment on above: Performed By: #### C BC #### [facility] [address] [place], [place] [address] Marianela Kena PLT 253 103/ul Normal 150-450 [facility] Comment on above: Performed By: #### C BC #### [facility] [address] [place], [place] [address] Marianela Kena RBC 4.52 106/ul Normal 4.20-5.40 [facility] Comment on above: Performed By: #### C BC #### [facility] [address] [id number] Marianela Kena WBC 11.1 103/ul Critically high 4.0-11.0 [facility] Comment on above: Performed By: #### C BC #### [facility] [address] [place], [place] [address] Marianela Kena GLYCOHEMOGLOBIN A1Con 2020 ADA RECOMMENDATION ADA THERAPEUTIC TARGET 6.0 - 7.0 ACTION SUGGESTED > 7.0 Normal [facility] Comment on above: Performed By: #### A 1C #### [facility] [address] [id number] Marianela Kena Glucose [Mass/Vol] 148 mg/dL Normal [facility] Comment on above: Performed By: #### A 1C #### [facility] [address] [place], [place] [address] Marianela Kena HbA1c (Bld) [Mass fraction] 6.8 % Critically high <=6.0 [facility] Comment on above: Performed By: #### A 1C #### [facility] [address] [place], [place] [address] Marianela Kena LIPID PROFILEon 05-18-2021 CHOL-HDL RATIO NORM SEE BELOW Normal [facility] Comment on above: Result Comment: 3.3 - 4.4 LOW RISK 4.4 - 7.1 AVERAGE RISK 7.1 - 11.0 MODERATE RISK >11.0 HIGH RISK Performed By: #### B MP, LIPID #### [facility] [address] [place], [place] [address] Marianela Kena Cholesterol [Mass/Vol] 255 mg/dL Critically high <=200 [facility] Comment on above: Performed By: #### B MP, LIPID #### [facility] [address] [place], [place] [address] Marianela Kena Cholesterol in HDL [Mass/Vol] 49 mg/dL Normal [facility] Comment on above: Performed By: #### B MP, LIPID #### [facility] [address] [place], [place] [address] Marianela Kena Cholesterol in LDL [Mass/Vol] 173.2 mg/dL Normal [facility] Comment on above: Performed By: #### B MP, LIPID #### [facility] [address] [place], [place] [address] Marianela Kena Cholesterol.total/Chol esterol in HDL [Mass ratio] 5.2 {ratio} Normal [facility] Comment on above: Performed By: #### B MP, LIPID #### [facility] [address] [place], [place] [address] Marianela Kena HDL NORMAL > or = 60 mg/dl - LO W CARDIOVASCULAR RISK <40 mg/dl - HIGH CARDIOVASCULAR RISK Normal [facility] Comment on above: Performed By: #### B MP, LIPID #### [facility] [address] [place], [place] [address] Marianela Kena LDL CALC NORMAL SEE BELOW Normal [facility] Comment on above: Result Comment: <100 mg/dl OPTIMAL 100 - 129 mg/dl NEAR OR ABOVE OPTIMAL 130 - 159 mg/dl BORDERLINE HIGH 160 - 189 mg/dl HIGH >190 mg/dl VERY HIGH Performed By: #### B MP, LIPID #### [facility] [address] [place], [place] [address] Marianela Kena Triglyceride [Mass/Vol] 164 mg/dL Critically high <=150 [facility] Comment on above: Performed By: #### B MP, LIPID #### [facility] [address] [place], [place] [address] Marianela Kena VLDL CALC 32.8 mg/dL Normal [facility] Comment on above: Performed By: #### B MP, LIPID #### [facility] [address] [place], [place] [address] Marianela Kena MICROALBUMIN, RAND URon 07-2 mALB 1.4 mg/L Normal <=30.0 [facility] Comment on above: Performed By: #### M ALBR #### [facility] [address] [place], [place] [address] Marianela Kena PROF CHEM 8 (BAS METB)on Anion gap [Moles/Vol] 16.6 mmol/L Normal [facility] Comment on above: Performed By: #### B MP, LIPID #### [facility] [address] [place], [place] [address] Marianela Kena Calcium [Mass/Vol] 9.4 mg/dL Normal 8.4-10.2 [facility] Comment on above: Performed By: #### B MP, LIPID #### [facility] [address] [place], [place] [address] Marianela Kena Chloride [Moles/Vol] 106 mmol/L Normal 98-107 [facility] Comment on above: Performed By: #### B MP, LIPID #### [facility] [address] [place], [place] [address] Marianela Kena CO2 [Moles/Vol] 24.5 mmol/L Normal 22.0-30.0 [facility] Comment on above: Performed By: #### B MP, LIPID #### [facility] [address] [place] [address] Marianela Kena Creatinine [Mass/Vol] 0.87 mg/dL Normal 0.52-1.04 [facility] Comment on above: Performed By: #### B MP, LIPID #### [facility] [address] [id number] Marianela Kena EGFR-AF PALESTINIAN >60 Normal >=60 [facility] Comment on above: Performed By: #### B MP, LIPID #### [facility] [address] [place] [address] Marianela Kena EGFR-NON AF PALESTINIAN >60 Normal >=60 [facility] Comment on above: Performed By: #### B MP, LIPID #### [facility] [address] [place] [address] Marianela Kena Glucose [Mass/Vol] 94 mg/dL Normal 74-106 [facility] Comment on above: Performed By: #### B MP, LIPID #### [facility] [address] [place] [address] Marianela Kena Potassium [Moles/Vol] 4.1 mmol/L Normal 3.4-5.0 [facility] Comment on above: Performed By: #### B MP, LIPID #### [facility] [address] [place] [address] Marianela Kena Sodium [Moles/Vol] 143 mmol/L Normal 137-145 [facility] Comment on above: Performed By: #### B MP, LIPID #### [facility] [address] [place] [address] Marianela Kena Urea nitrogen [Mass/Vol] 18.0 mg/dL Critically high 7.0-17.0 [facility] Comment on above: Performed By: #### B MP, LIPID #### [facility] [address] [place] [address] Marianela Kena Urea nitrogen/Creatinine [Mass ratio] 20.7 mg/mg Normal [facility] Comment on above: Performed By: #### B MP, LIPID #### [facility] [address] [place], [place] [address] Marianela Escudero Dermatopathologyon 1 Dermatopathology [facility] [address] [place] [id number] DERMATOPATHOLOGY REPORT Name:USHA WYATT [facility] Rec #. [id number] Location: [facility] Date of Procedure: 01/19/2021 Race: Date Received: 01/21/2021 /Sex: 1940 (Age: 80) / F Date Reported: 01/22/2021 Other: Submitting Physician:USHA BERG MD FINAL DIAGNOSIS SKIN, L CHEEK, BIOPSY: BASAL CELL CARCINOMA, NODULAR GROWTH PATTERN, PRESENT ON THE DEEP AND PERIPHERAL MARGIN. Electronically Signed Out by ROOPA NELSON M.D. Electronically Signed Out By ROOPA NELSON MD/[facility] By the signature on this report, the individual or group listed as making the Final Interpretation/Diagno sis certifies that they have reviewed this case. Clinical History: BCC. 1.0 x 0. Biopsy. Specimens Submitted As: A: SKIN, L CHEEK Gross Description: Received in formalin is a rome piece of skin measuring 7 x 6 x 1 mm. Inked and embedded [facility]01/21/2021 Microscopic Description: Microscopic analysis shows a discrete nodule of tumor that is associated with the epidermis. The carcinoma is composed of bland basaloid keratinocytes with peripheral palisaded arrangement of nuclei. Normal [facility] Comment on above: Performed By: #### D #### Dermatopathology Physician Referralon 021 Physician Referral [id number] Normal [facility] Dermatopathologyon 0 Dermatopathology [facility] [address] [place] [address] [address] [place], [place] [phone] DERMATOPATHOLOGY REPORT Name:USHA WYATT [facility] Rec #. 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 Note: The tumor is at least 1.1 mm in thickness and extends into at least the superficial reticular dermis. No perineural or lymphovascular invasion is seen. Electronically Signed Out by ROOPA NELSON M.D. Electronically Signed Out By ROOPA NELSON MD/[facility] By the signature on this report, the individual or group listed as making the Final Interpretation/Diagno sis certifies that they have reviewed this case. Clinical History: SCC vs ISK. 1.0 x 0.8 cm. Shave Biopsy. Specimens Submitted As: A: SKIN, R CHEEK Gross Description: Received in formalin is one rome-brown piece of skin measuring [id number]. The specimen is inked and embedded in toto. [facility]/05/16/2020 Microscopic Description: Microscopic analysis shows irregular growth of keratinocytes that are associated with the epidermis and invade the dermis in isolated islands and strands. Horn pearls and partial keratinization are present. The basal cells are poorly demarcated from the stroma. Atypia is moderate and scattered mitoses and apoptotic cells are present. Lymphoplasmacytic inflammation is evident at the interface between tumor and dermis. Normal [facility] Comment on above: Performed By: #### D #### Dermatopathology Vital Signs Date Time Vital Sign Value Performing Clinician Facility 01-23-2024 14:59-0400 Body height 167.64 cm [facility] 01-23-2024 14:59-0400 Body mass index (BMI) [Ratio] 38.9 kg/m2 [facility] 01-23-2024 14:59-040 Body weight 109.54 kg [facility] 01-23-2024 14:59-0400 Diastolic blood pressure 82 mm[Hg] [facility] 01-23-2024 14:59-0400 Heart rate 76 /min [facility] 01-23-2024 14:59-0400 Respiratory rate 16 /min [facility] 01-23-2024 14:59-0400 Systolic blood pressure 132 mm[Hg] [facility] 09-23-2023 14:30-0500 Body height 167.64 cm Nilton Ball Other [facility] [employer] Other 09-23-2023 14:30-0500 Body mass index (BMI) [Ratio] 38.89 kg/m2 Nilton Ball Other [facility] Other 09-23-2023 14:30-0500 Body weight 109.32 kg Nilton Ball Other [facility] Other 09-23-2023 14:30-0500 Diastolic blood pressure 82 mm[Hg] Nilton Ball Other [facility] Other 09-23-2023 14:30-0500 Respiratory rate 20 /min Nilton Ball Other [facility] Other 09-23-2023 14:30-0500 Systolic blood pressure 126 mm[Hg] Nilton Ball Other [facility] Other 05-25-2023 14:30-0400 Body height 167.64 cm Nilton Ball Other [facility] Other 05-25-2023 14:30-0400 Body mass index (BMI) [Ratio] 39.18 kg/m2 Nilton Ball Other [facility] Other 05-25-2023 14:30-0400 Body weight 110.13 kg Nilton Ball Other [facility] Other 05-25-2023 14:30-0400 Diastolic blood pressure 82 mm[Hg] Nilton Ball Other [facility] Other 05-25-2023 14:30-0400 Respiratory rate 20 /min Nilton Ball Other [facility] Other 05-25-2023 14:30-0400 Systolic blood pressure 124 mm[Hg] Nilton Ball Other [facility] Other 04-15-2023 14:00-0400 Body height 167.64 cm Nilton Ball Other [facility] Other 04-15-2023 14:00-0400 Body mass index (BMI) [Ratio] 38.44 kg/m2 Nilton Ball Other [facility] Other 04-15-2023 14:00-0400 Body weight 108.05 kg Nilton Ball Other [facility] Other 04-15-2023 14:00-0400 Diastolic blood pressure 86 mm[Hg] Nilton Ball Other [facility] Other 04-15-2023 14:00-0400 Respiratory rate 20 /min Nilton Ball Other [facility] Other 04-15-2023 14:00-0400 Systolic blood pressure 136 mm[Hg] Nilton Ball Other [facility] Other Encounters Encounter Date Encounter Type Care Provider Facility Start: 01-23-2024 End: 01-23-2024 ambulatory [facility] Work Phone: Start: 01-23-2024 End: 01-23-2024 Patient encounter procedure [facility] Work Phone: Start: 10-07-2023 End: 10-07-2023 ambulatory Nilton Ball Other [facility] Other Start: 10-07-2023 Telephone encounter Nilton Ding [facility] Start: 10-06-2023 End: 10-06-2023 ambulatory Nilton Ding Other [facility] Other Start: 10-06-2023 Telephone encounter Nilton Ding [facility] Start: 09-29-2023 End: 09-29-2023 ambulatory Nilton Ding Other [facility] Other Start: 09-29-2023 Telephone encounter Nilton Ding [facility] Start: 09-23-2023 End: 09-23-2023 ambulatory Nilton Ding Other [facility] Other Start: 09-23-2023 Patient encounter procedure Nilton Ding [facility] Start: 05-25-2023 End: 05-25-2023 ambulatory Nilton Ding Other [facility] Other Start: 05-25-2023 Office outpatient vi sit 15 minutes Nilton Ball [facility] Start: 04-15-2023 End: 04-15-2023 ambulatory Nilton Ding Other [facility] Other Start: 04-15-2023 Office outpatient vi sit 25 minutes Nilton Ball [facility] Start: 12-14-2022 End: 12-14-2022 ambulatory Nilton Ding Other [facility] Other Start: 12-14-2022 Telephone encounter Nilton Ding [facility] Start: 04-30-2022 Adult health examination Nilton Ding Other [facility] Other Start: 12-30-2021 End: 12-31-[address] NILTON DING Facility:[facility] Start: 12-25-2021 End: 12-26-2021 ambulatory TYLOR RODRÍGUEZ Facility:[facility] Start: 05-18-2021 End: 05-19-[address] NILTON DING Facility:[facility] Procedures Date Procedure Procedure Detail Performing Clinician Start: 05-08-2021 Depression screening Be ally Ding Other Start: 02-20-2018 Screening for osteoporosis Nilton Ding Other Immunizations Immunization Date Immunization Notes Care Provider Sharona gutierrez 09-23-2023 influenza, high dose seasonal, preservative-free Nilton Ding Other [facility] [employer] Other 09-23-2023 influenza virus vaccine, unspecified formulation [facility] 08-09-2022 influenza virus vaccine, split virus (incl. purified surface antigen) Nilton Ding Other [facility] [employer] Other 08-09-2022 influenza virus vaccine, unspecified formulation [facility] 08-14-2021 influenza virus vaccine, split virus (incl. purified surface antigen) Nilton Ding Other [facility] [employer] Other 08-14-2021 influenza virus vaccine, unspecified formulation [facility] 04-17-2021 COVID-19 Vaccine Moderna - Documentation Purposes Only Nilton Ding Other [facility] 08-06-2020 influenza virus vaccine, split virus (incl. purified surface antigen) Nilton Ding Other [facility] [employer] Other 08-06-2020 influenza virus vaccine, unspecified formulation [facility] 01-10-2019 diphtheria, tetanus toxoids and acellular pertussis vaccine, unspecified formulation Nilton Ding Other [facility] 02-20-2018 pneumococcal conjuga te vaccine, 13 valent Nilton Ding Other [facility] 07-27-2014 tetanus and diphther ia toxoids, adsorbed, preservative free, for adult use (5 Lf of tetanus toxoid and 2 Lf of diphtheria toxoid) Nilton Ding Other [facility] 09-01-2005 pneumococcal polysaccharide vaccine, 23 valent Nilton Timur Other [facility] 07-28-2005 tetanus and diphther ia toxoids, adsorbed, preservative free, for adult use (5 Lf of tetanus toxoid and 2 Lf of diphtheria toxoid) Nilton Ding Other [facility] Payers Date Payer Category Payer Medicaid [id number] 1961 Unknown [id number] 1940 Unknown [id number] 1940 Unknown [id number] 1940 Unknown [id number] Social History Date Type Detail Facility Sex Assigned At [facility] Other Start: 01-23-2024 Tobacco smoking stat us WVIS Never smoked tobacco (finding) [facility] Start: 1940 Sex Assigned At Female F [facility] Medical Equipment Procedure Code Equipment Code Equipment Origin al Text Equipment Identifier Dates Start: 03-08-2017 Evaluation note 09-23-2023 Note Date & Type Note Facility 09-23-2023 Evaluation note Encounter Date Diagnosis Assessment Notes Sep, Medicare annual wellness visit, subsequent (ICD-10 - Z00.00) Personalized health advice was given to the beneficiary including a written plan for screenings discussed and provided. Advanced care planning reviewed and/or information given as requested. Additional counseling was provided here today in regards to, [ ]. The above visit was performed by [ ], under direct supervision of [ ]. Document reviewed and amended by provider signed below. Sep, Diabetes mellitus with hyperglycemia (ICD-10 - E11.65) This patient is following a comprehensive diabetic treatment plan. They are checking their feet daily for calluses and nonhealing ulcers. They are being seen for yearly dilated eye examinations. Goals: SBP less than 130, LDL less than 100, FBS less than 140, A1C less than 7%. They are checking their BS daily, will which are reviewed at the office visit. Continue regular routine monitoring of A1C,] Microalbumin, Dilated eye exam and Foot exam Sep, Primary hypertension (ICD-10 - I10) This patient is instructed to consume a healthy, low-fat, low-salt diet. They are also encouraged to continue exercise to achieve/maintain a normal BMI. Sep, Type 2 diabetes mellitus with diabetic polyneuropathy (ICD-10 - E11.42) Inspect feet daily for cuts and calluses.Recomme nd diabetic shoes and inserts to prevent callus formation.Fall precautions. Sep, Mixed stress and urge urinary incontinence (ICD-10 - N39.46) DId not respond to medical therapy. 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 They are instructed to reduce calories, portion sizes and snacks. It is recommended that they exercise for 30 minutes, 3-5 times weekly. Sep, Body mass index [BMI] 38.0-38.9, adult (ICD-10 - Z68.38) Sep, Chronic idiopathic constipation (ICD-10 - K59.04) Increase fiber and fluids in diet. Keep active. Linzess as needed. Sep, Hypercholesterolemia (ICD-10 - E78.00) Instructed on diet and exercise with continued statin therapy.Discusse d the beneficial effects of lowering cholesterol in reducing the risk for cerebrovascular and cardiovascular disease. Sep, Screening mammogram for breast cancer (ICD-10 - Z12.31) B/L mastectomy, no mammogram necessary Sep, Right upper quadrant abdominal pain (ICD-10 - R10.11) Hx of breast cancer associated w/ RUQ tenderness, bloating and asymmetry Sep, Acute right-sided low back pain with right-sided sciatica (ICD-10 - M54.41) [facility] Other Evaluation note 05-25-2023 Note Date & Type Note Facility 05-25-2023 Evaluation note Encounter Date Diagnosis Assessment Notes May, Lumbar spondylosis (ICD-10 - M47.816) The patient is instructed to avoid bending, twisting or lifting. They are to use intermittent heat and ice as needed. They may schedule a massage or gentle manipulation. They may safely use Tylenol as needed. Would benefit from lift chair May, Primary osteoarthritis of both hips (ICD-10 - M16.0) ROM exercises, ice/heat and Tylenol. Avoid squatting. Would benefit from lift chair May, Primary osteoarthritis of left knee (ICD-10 - M17.12) Quad exercises, ice/heat and Tylenol. Avoid squatting or kneeling Would benefit from lift chair May, Basal cell carcinoma (BCC) of skin of other part of torso (ICD-10 - C44.519) Keep clean and dry Cleanse w/ soap and water and use Bactroban ointment bid. [facility] Other Evaluation note 04-15-2023 Note Date & Type Note Facility 04-15-2023 Evaluation note Encounter Date Diagnosis Assessment Notes Mar, Diabetes mellitus with hyperglycemia (ICD-10 - E11.65) This patient is following a comprehensive diabetic treatment plan. They are checking their feet daily for calluses and nonhealing ulcers. They are being seen for yearly dilated eye examinations. Goals: SBP less than 130, LDL less than 100, FBS less than 140, AC and A1C less than 7%. They are checking their BS daily, will which are reviewed at the office visit. Continue regular routine monitoring of A1C,] Microalbumin, Dilated eye exam and Foot exam Mar, Primary hypertension (ICD-10 - I10) This patient is instructed to consume a healthy, low-fat, low-salt diet. They are also encouraged to continue exercise to achieve/maintain a normal BMI. Mar, Type 2 diabetes mellitus with diabetic polyneuropathy (ICD-10 - E11.42) Inspect feet daily for cuts and calluses.Recomme nd diabetic shoes and inserts to prevent callus formation.Fall precautions. Mar, Mixed stress and urge urinary incontinence (ICD-10 - N39.46) Improved w/ holding diuretic Lasix PRN, taking OTC diuretic w/o problems. 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 They are instructed to reduce calories, portion sizes and snacks. It is recommended that they exercise for 30 minutes, 3-5 times weekly. Mar, Body mass index [BMI] 38.0-38.9, adult (ICD-10 - Z68.38) Mar, Chronic idiopathic constipation (ICD-10 - K59.04) Diet instructions: increase fluid and fiber Mar, Hypercholesterolemia (ICD-10 - E78.00) Instructed on diet and exercise with continued statin therapy.Discusse d the beneficial effects of lowering cholesterol in reducing the risk for cerebrovascular and cardiovascular disease. [facility] Other Evaluation note Note Date & Type Note Facility Evaluation note No Information [facility] Other Evaluation note Note Date & Type Note Facility Evaluation note Diagnosis Onset Date Chronic venous insufficiency of lower extremity acute Hypercholesterolemia acute Hypertension acute Lumbar spondylosis acute Type 2 diabetes mellitus with hyperglycemia acute [facility] Work Phone: History general Narrative - Reported Note Date & Type Note Facility History general Narrative - Reported Type Medical History DM 2 Medical History BREAST CANCER Medical History KIDNEY STONES Surgical History LEFT KNEE SURGERY 2004 Surgical History BREAST LUMPECTOMY LEFT SIDE 200 6 Surgical History RIGHT KNEE SURGERY 2008 Surgical History KIDNEY STONE SURGERY 01/2016 Surgical History LITHITRIPSY 10/2016 Surgical History HYSTERECTOMY Surgical History RUPTURED RECTAL WALL REPAIR Surgical History LEFT HAND FRACTURE REPAIR Surgical History LASER EYE SURGERY RIGHT 01/2017 Hospitalization History SEE ABOVE LIST Hospitalization History KIDNEY INFECTION [facility] Other Summary Purpose Family History Relationship Condition Age at Onset Recorded Date/T barrera father Unknown Not Specified Unknown Advance Directives Advance Directive Response Recorded Date/ Time Advance Directives No November 14, 2023 6:16pm Chief Complaint and Reason for Visit Chief Complaint 4 month Reason for Visit Chronic venous insuf ficiency of lower extremity Hypercholesterolemia Hypertension Lumbar spondylosis Type 2 diabetes mellitus with hyperglycemia Additional Source Comments INFORMATION SOURCE (unrecogn ized section and content) DATE CREATED AUTHOR 11/04/2020 Johan Hoskins [facility] DATE CREATED AUTHOR AUTHOR'S ORGANIZ ATION 02/19/2021 [facility] DATE CREATED AUTHOR AUTHOR'S ORGANIZ ATION 01/01/2022 [facility] REASON FOR VISIT (unrecogniz ed section and content) Home Health4 month Follow up F2F FOR LIFT CHAIRWELLNESSWELLNESSERRORLab/US resultsXray results Care Teams (unrecognized sec tion and content) Team Status: Active Member Role Status Dates Nilton Ding DO Primary Care Provider Active Team Status: Inactive Member Role Status Dates Kaelyn Newby DO Primary Care Provider Active Start: January 23, 2024 End: January 23, 2024 Nilton Ding DO Attending Provider Active Sta rt: January 23, 2024 End: January 23, 2024 Goals (unrecognized section and content) Goals may be documented in a n alternate section FOR RECORDS PERTAINING TO PATIENTS WHO ARE OR HAVE BEEN ENROLLED IN A CHEMICAL DEPENDENCY/SUBSTANCEABUSE PROGRAM, SOME INFORMATION MAY BE OMITTED. This clinical summary was aggregated from multiple sources. Caution should be exercised in using it in the provision of clinical care. This summary normalizes information from multiple sources, and as a consequence, information in this document may materially change the coding, format and clinical context of patient data. In addition, data may be omitted in some cases. CLINICAL DECISIONS SHOULD BE BASED ON THE PRIMARY CLINICAL RECORDS. [facility]. provides no warranty or guarantee of the accuracy or completeness of information in this document.
== END 2024-02-06 13:27 | disposition home or self-care (01) ==
LOC: MRI 13:26
PROVIDERS: PCP Internal Medicine; Visit Provider Internal Medicine
DX: M47.27 Other spondylosis with radiculopathy, lumbosacral region (principal); M54.50 Low back pain, unspecified; M48.062 Spinal stenosis, lumbar region with neurogenic claudication
CPT/HCPCS: 72148

== ENCOUNTER 2025-02-07 14:11 | Outpatient (OUT) | payer MEDICARE, MEDICAID, SELFPAY ==
--- OUTSIDE RECORDS SUMMARY | 2025-02-07 14:52 | XMS_ITS | CCD ---
Author Organization [facility] Care Team Providers [employer] Caser Name Role Phone DR NILTON DING Attending Unavailable BALL, DR SANTIAGO Referring Unavailable BALL, DR SANTIAGO Admitting Unavailable BALL, DR SANTIAGO Primary Care Unavailable BALL, DR SANTIAGO Consulting Unavailable ZIEBER, DR MARIXA Tilley Consulting Unavailable MARCOSSAV ISSA Attending Unavailable MARCOS, SAV Admitting Unavailable MARCOS, SAV Consulting Unavailable BALL, DR SANTIAGO Primary Care Unavailable BALL, DR SANTIAGO Consulting Unavailable BALL, DR SANTIAGO Attending Unavailable BALL, DR SANTIAGO Admitting Unavailable BALL, DR SANTIAGO Primary Care Unavailable Nilton Ding Unavailable DO Nilton Ding Primary Care Provider RAY Evans Attending Provider NILTON DING Referring Unavailable ARAVIND, NILTON Attending Unavailable Nilton Ding DO Primary Care Provider Isabel Evans APRN Attending Provider Nilton Ding MD Primary Care Provider Phillip Fox Attending Unavailable Phillip Fox Admitting Unavailable Nilton Ding Primary Care Unavailable Isabel Evans Admitting Unavailable Nilton Ding Primary Care Unavailable Isabel Evans Attending Unavailable Nilton Ding DO Primary Care Provider Phillip Fox MD Attending Provider [phone] JACKELYN HOWARD Attending Unavailable JACKELYN HOWARD Attending Unavailable SAV RODRÍGUEZ F Referring Unavailable SAV RODRÍGUEZ F Attending Unavailable Allergies Allergy Classification Reported Allergen(s) Allergy Type Date of Onset Reaction(s) Facility (1 source) Desonide Drug Allergy 10-14-20 13 [facility] (1 source) Latex Drug allergy (disorder) 04-27-20 17 [facility] (1 source) Silicone Drug allergy (disorder) 04-27-20 17 [facility] (8 sources) Adhesive Bandages Drug allergy Unknown [facility] Age of Learning Other (16 sources) atorvastatin Drug Allergy 01-23-20 24 Unknown, Unknown Reaction [facility] (20 sources) Cephalexin Drug Allergy 02-24-20 21 Unknown, Unknown Reaction [facility] (6 sources) Singulair *ANTIASTHMATIC AND BRONCHODILATOR AGENTS Propensity to adverse reactions Unknown [facility] Age of Learning Other (10 sources) Adhesive agent Allergy to substance 01-23-20 24 Unknown Reaction [facility] (10 sources) Singulair *ANTIASTHMATIC AND B Allergy to substance 01-20-20 24 Unknown Reaction [facility] (1 source) Adhesive Tape; Translations: [Tape] Propensity to adverse reactions (disorder) [facility] Repository (9 sources) HMG-CoA reductase inhibitor Drug Allergy 07-16-20 14 Other [facility] (9 sources) Other Propensity to adverse reactions 03-28-20 19 [facility] (9 sources) Wound Dressing Adhesive Drug Allergy 07-16-20 14 Other [facility] Medications Current Medications Medication Drug Class(es) Dates Sig (Normalized) Sig (Original) acetaminophen 325 mg oral capsule (18 sources) Start: 01-20-2024 take 1 capsule by mouth four times daily as needed Acetaminophen (Tylenol) 325 mg capsule Active 325 MG PO Four times daily as needed January 20, 2024 12:00am Tylenol Active Allergy (8 sources) Allergy Active Diclofenac (5 sources) Nonsteroidal Anti-inflammatory Drug Diclofenac Sodium 1.6 % gel Apply topically Active Dietary Manage Prod - Sheeter [employer] (8 sources) Dietary Manage P tessa - Sheeter Waxer Operator Active Dietary Supplement (7 sources) Start: 01-20-2024 Dietary Supplement Active CAP PO January 20, 2024 12:00am Dietary Supplement capsule (3 sources) Start: 01-20-2024 Dietary Supplement capsule Active CAP PO January 20, 2024 12:00am Start: 01-20-2024 Dietary Supple ment capsule Active CAP PO January 19, 2024 11:00pm docusate sodium 50 mg / sennosides, fpc 8.6 mg oral tablet (10 sources) Start: 01-20-2024 take 1 tablet by mouth once daily at bedtime Sennosides-Docusate Sodium (Stimulant Laxative Plus) 8.6-50 mg tablet Active 1 TAB-CAP PO Daily at bedtime January 20, 2024 12:00am 0.5 ml dulaglutide 1.5 mg/ml auto-injector (20 sources) GLP-1 Receptor Agonist Start: 04-04-2023 inject 0.75 mg by subcutaneous injection every week Dulaglutide (Trulicity) 0.75 MG/0.5ML solution auto-injector Indications: Type 2 diabetes mellitus with other circulatory complications (CMS/HCC) Inject 0.75 mg under the skin 1 (one) time per week 6 mL 3 11/27/2024 Active ezetimibe 10 mg oral tablet (5 sources) Dietary Cholesterol Absorption Inhibitor Start: 10-15-2024 End: 10-15-2025 take 1 tablet by mouth once daily ezetimibe (Zetia) 10 MG tablet Indications: Type 2 diabetes mellitus with hyperglycemia, with long-term current 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 (CMS/HCC) Take 1 tablet (10 mg) by mouth Daily 30 tablet 11 10/15/2024 10/15/2025 Active fluocinonide 0.5 mg/ml topical solution (8 sources) Corticosteroid Start: 09-11-2024 fluocinonide (Lidex) 0.05 % external solution Indications: Other seborrheic dermatitis Apply to affected areas on the scalp, up to twice a day when flared, 30 day supply 60 mL 11 09/11/2024 Active fluticasone propionate 0.05 mg/actuat metered dose nasal spray (20 sources) Corticosteroid Start: 01-20-2024 Fluticasone Propionate 50 mcg/actuation spray,suspension Active 1 SPRAY INTRANASAL Daily January 20, 2024 12:00am Start: 12-08-2022 take 1 spray(s) nasa l route once daily fluticasone (Flonase) 50 MCG/ACT nasal spray INSTILL ONE SPRAY IN EACH NOSTRIL ONCE DAILY FOR 30 DAYS 04/04/2023 Active Start: 12-08-2022 take 1 spray(s) nasa l route once daily Fluticasone Propionate 50 MCG/ACT 1 spray in each nostril Nasally Once a day for 30 day(s) Nov, Active furosemide 20 mg oral tablet (1 source) Loop Diuretic take 1 tablet by mouth once daily Furosemide 20 MG 1 tablet Orally Once a day Active hydroCHLOROthiazide 12.5 mg oral tablet (20 sources) Thiazide Diuretic Start: 2021 take 1 tablet by mouth in the morning hydroCHLOROthiazide (HYDRODiuril) 12.5 MG tablet Take 12.5 mg by mouth in the morning. 10/04/2022 Active 3 ml insulin aspart, human 100 unt/ml pen injector (9 sources) Insulin Analog Start: 2024 insulin aspart FlexPen (NovoLOG) 100 UNIT/ML pen Indications: Type 2 diabetes mellitus with other circulatory complications (CMS/HCC) INJECT 10-12-15 UNITS SUBCUTANEOUSLY TO MEAL SIZE PLUS ISS#2 (EXPECT DAILY DOSE OF 50 UNITS) 50 mL 5 11/27/2024 Active Start: 08-07-2024 insulin aspart FlexPen (NovoLOG) 100 UNIT/ML pen Indications: Type 2 diabetes mellitus with other circulatory complications (CMS/HCC) INJECT 10-12-15 UNITS SUBCUTANEOUSLY TO MEAL SIZE PLUS ISS#2 (EXPECT DAILY DOSE OF 50 UNITS) 30 mL 11 08/07/2024 Active 1.5 ml insulin glargine 300 unt/ml pen injector (20 sources) Insulin Analog Start: 12-25-2024 insulin glargi ne (Toujeo SoloStar) 300 UNIT/ML injection Indications: Type 2 diabetes mellitus with other circulatory complications (CMS/HCC) INJECT 45 UNITS SUBCUTANEOUSLY IN THE MORNING. 7.5 mL 3 12/25/2024 Active Start: 04-04-2023 Toujeo Max Anneliese oStar 300 UNIT/ML injection INJECT 45 UNITS SUBCUTANEOUSLY DAILY AT BEDTIME 04/04/2023 Active Start: 02-24-2017 Toujeo SoloSta r 300 UNIT/ML 45 units Subcutaneous at HS February, Active Start: 02-24-2017 inject 25 [IU] by moe bcutaneous injection at bedtime Toujeo SoloStar 300 UNIT/ML 25 units Subcutaneous at HS February, Active insulin glargine (Toujeo SoloStar) 300 UNIT/ML injection as directed Subcutaneous Active Insulin Glargine U-300 Conc (7 sources) Start: 01-20-2024 inject 45 [IU] by subcutaneous injection once daily at bedtime Insulin Glargine U-300 Conc Active 45 UNIT SUBCUT Daily at bedtime January 20, 2024 12:00am Insulin Glargine U-300 Conc 300 unit/mL (1.5 mL) insulin pen (3 sources) Start: 01-20-2024 Insulin Glargi ne U-300 Conc 300 unit/mL (1.5 mL) insulin pen Active 45 UNIT SUBCUT Daily at bedtime January 20, 2024 12:00am Start: 01-20-2024 Insulin Glargi ne U-300 Conc 300 unit/mL (1.5 mL) insulin pen Active 45 UNIT SUBCUT Daily at bedtime January 19, 2024 11:00pm 3 ml insulin lispro 100 unt/ml pen injector (8 sources) Insulin Analog Start: 02-21-2017 inject 100 [IU] by subcutaneous injection before mealtime HumaLOG KwikPen 100 UNIT/ML 8-10-12 units ac plus ISS#2 Subcutaneous February, Active Insulin Lispro (Humalog Kwikpen Insulin) 100 unit/mL insulin pen (10 sources) Start: 01-20-2024 inject 1 dose by subcutaneous injection before mealtime Insulin Lispro (Humalog Kwikpen Insulin) 100 unit/mL insulin pen Active 1 sliding scale dose SUBCUT Use as Directed January 19, 2024 11:00pm 8-10-12 units ac plus ISS#2 Subcutaneous Start: 01-20-2024 inject 1 dose by sub cutaneous injection before mealtime Insulin Lispro (Humalog Kwikpen Insulin) 100 unit/mL insulin pen Active 1 sliding scale dose SUBCUT Use as Directed January 20, 2024 12:00am 8-10-12 units ac plus ISS#2 Subcutaneous lactase 3000 unt chewable tablet (18 sources) Start: 01-20-2024 take 1 tablet by mouth once Lactase (Lactaid) 3,000 unit tablet Active 3000 UNIT PO 3x/Day before meals as needed January 20, 2024 12:00am administer with first bite of dairy food Lactaid Active linagliptin 5 mg oral tablet (1 source) Dipeptidyl Peptidase 4 Inhibitor Start: 02-21-2017 take 1 tablet by mouth every twenty-four hours Tradjenta 5 MG 1 tablet Orally Once a day for 30 day(s) February, Active lisinopril 10 mg oral tablet (20 sources) Angiotensin Converting Enzyme Inhibitor Start: 01-15-2025 take 1 tablet by mouth once daily Lisinopril 10 mg tablet Active 10 MG PO Daily 90 90 January 15, 2025 2:54pm Start: 11-27-2024 take 1 tablet by leonard th once daily lisinopril 5 MG tablet Take 5 mg by mouth Daily 11/27/2024 Active Start: 05-02-2024 End: 01-15-2025 take 1 tablet by mouth once daily Lisinopril 5 mg tablet Discontinued 0 .ROUTE .COMPLEX 90 May 02, 2024 8:41am January 15, 2025 2:56pm TAKE ONE TABLET BY MOUTH DAILY Start: 01-20-2024 End: 05-02-2024 take 1 tablet by mouth once daily Lisinopril 5 mg tablet Discontinued 5 MG PO Daily January 20, 2024 12:00am May 02, 2024 8:41am Start: 10-04-2022 End: 01-18-2025 take 1 tablet by mouth in the morning lisinopril 2.5 MG tablet Take 2.5 mg by mouth in the morning. 10/04/2022 01/18/2025 Discontinued (Dose adjustment) take 1 tablet by leonard th every twenty-four hours Lisinopril 5 MG 1 tablet Orally Once a day Active meloxicam 7.5 mg oral tablet (5 sources) Nonsteroidal Anti-inflammatory Drug take 1 tablet by mouth once daily meloxicam (Mobic) 7.5 MG tablet Take 7.5 mg by mouth Daily Active potassium chloride 10 meq extended release oral tablet (18 sources) Start: take 1 tablet by mouth once daily Potassium Chloride 10 mEq tablet extended release Active 10 MEQ PO Daily January 20, 2024 12:00am take 1 tablet by leonard every twenty-four hours Potassium Chloride ER 10 MEQ 1 tablet with food Orally Once a day Active Red Yeast Rice (8 sources) Red Yeast Rice Active red yeast rice 600 mg oral tablet (10 sources) Start: 01-20-2024 take 1 tablet by mouth once daily Red Yeast Rice 600 mg tablet Active 600 MG PO Daily January 20, 2024 12:00am give with meal/snack Stimulant Laxative (8 sources) Stimulant Laxati ve Active traMADol hydrochloride 50 mg oral tablet (12 sources) Opioid Agonist Start: 07-26-2024 End: 08-03-2024 take 1 tablet by mouth once daily as needed for pain Tramadol 50 mg tablet Active 50 MG PO Daily as needed for pain August 03, 2024 9:58am take 1 tablet by leonard th every six hours as needed for pain traMADol (Ultram) 50 MG tablet Take 50 m g by mouth every 6 (six) hours if needed for severe pain Active Completed/Discontinued Medications Medication Drug Class(es) Dates Sig (Normalized) Sig (Original) amoxicillin 875 mg oral tablet (8 sources) Penicillin-class Antibacterial take 1 tablet by mouth every twelve hours Amoxicillin 875 MG 1 tablet Orally every 12 hrs Not-Taking/PRN celecoxib 200 mg oral capsule (20 sources) Nonsteroidal Anti-inflammatory Drug Start: 09-29-2023 End: 01-15-2025 take 1 capsule by mouth once daily Celecoxib 200 mg capsule Discontinued 200 MG PO Daily February 29, 2024 6:16pm January 15, 2025 2:31pm cetirizine hydrochloride 10 mg oral tablet (10 sources) Histamine-1 Receptor Antagonist Start: 01-20-2024 End: 01-15-2025 take 1 tablet by mouth once daily as needed Cetirizine (24hour Allergy) 10 mg tablet Discontinued 10 MG PO Daily as needed January 20, 2024 12:00am January 15, 2025 2:31pm diphenhydrAMINE hydrochloride 25 mg oral tablet (18 sources) Histamine-1 Receptor Antagonist Start: 01-20-2024 End: 01-15-2025 take 1 tablet by mouth once daily at bedtime as needed Diphenhydramine Hcl (Benadryl Allergy) 25 mg tablet Discontinued 25 MG PO Daily at bedtime as needed January 20, 2024 12:00am January 15, 2025 2:31pm Benadryl Active DULoxetine 30 mg delayed release oral capsule (11 sources) Serotonin and Norepinephrine Reuptake Inhibitor Start: 05-24-2024 End: 07-26-2024 take 1 capsule by mouth once daily Duloxetine 30 mg capsule,delayed release(DR/EC) Discontinued 30 MG PO Daily May 24, 2024 12:00am July 26, 2024 3:09pm DULoxetine (Cymb riley) [address] capsule 2 capsules 1 (one) time each day at the same time Active gabapentin 100 mg oral capsule (14 sources) Anti-epileptic Agent Start: 07-26-2024 End: 01-15-2025 take 2 capsules by mouth at bedtime Gabapentin 100 mg capsule Discontinued 100 MG PO .COMPLEX 60 July 26, 2024 3:12pm January 15, 2025 2:31pm 100 mg orally take 2 caps at bedtime; Take 200mg at bedtime Start: 05-24-2024 End: 07-26-2024 take 1 capsule by mouth twice daily Gabapentin 100 mg capsule Discontinued 100 MG PO Twice daily 60 May 24, 2024 12:00am July 26, 2024 3:13pm gabapentin (Neur ontin) 100 MG capsule 1 capsule 1 (one) time each day at the same time Active linaclotide 0.072 mg oral capsule (17 sources) Guanylate Cyclase-C Agonist Start: 01-20-2024 End: 01-15-2025 take 1 capsule by mouth once daily Linaclotide 72 mcg capsule Discontinued 72 MCG PO Daily January 20, 2024 12:00am January 15, 2025 2:33pm Start: 04-15-2023 Linzess 72 MCG 1 capsule at least 30 minutes before the first meal of the day on an empty stomach Orally Once a day Mar, Active Start: 04-15-2023 Linzess 72 MCG 1 capsule at least 30 minutes before the first meal of the day on an empty stomach Orally Once a day Mar, Active methocarbamol 750 mg oral tablet (9 sources) Muscle Relaxant Start: 02-08-2024 End: 01-15-2025 take 1 tablet by mouth once daily at bedtime Methocarbamol 750 mg tablet Discontinued 750 MG PO Daily at bedtime 14 February 08, 2024 12:00am January 15, 2025 2:32pm mupirocin 0.02 mg/mg topical ointment (18 sources) RNA Synthetase Inhibitor Antibacterial Start: 01-20-2024 End: 01-15-2025 Mupirocin 2 % ointment Discontinued 1 APPLIC TOPICAL Twice daily January 20, 2024 12:00am January 15, 2025 2:32pm Start: 12-08-2022 Mupirocin 2 % 1 application Externally Twice a day for 10 days Nov, Active Problems Active Problems Problem Classification Problem Date [...] Onset: 04-27-2017 Chronic Disorders of lipid metabolism (20 sources) Mixed hyperlipidemia; 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 ] Onset: 10-24-1961 Chronic Essential hypertension (20 sources) Essential (primary) hypertension; Translations: [Essential hypertension] Onset: 05-21-2021 Chronic Fluid and electrolyte disorders (1 source) Hypokalemia; Translations: [Hypokalemia] Episodic Genitourinary symptoms and ill-defined conditions (20 sources) Mixed urinary incontinence; Translations: [Mixed incontinence] [...] Neoplasms of unspecified nature or uncertain behavior (4 sources) 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; 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] Onset: 03-01-2017 09-11-2024 Episodic Nutritional deficiencies (17 sources) Vitamin D deficiency, unspecified; Translations: [Vitamin D deficiency] Onset: 12-29-2021 09-13-2024 Chronic Osteoarthritis (20 sources) Osteoarthritis of knee; Translations: [Unilateral primary osteoarthritis, left knee] Chronic Other aftercare (3 sources) 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) 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 Episodic Other aftercare (1 source) Long-term current use of drug therapy; Translations: [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 therapy] Episodic Other and unspecified benign neoplasm (2 sources) Skin lesion; Translations: [Hemangioma of skin and subcutaneous tissue] 09-11-2024 Episodic Other connective tissue disease (8 sources) Bursitis of hip; Translations: [Trochanteric bursitis, unspecified hip] 05-24-2024 Episodic Other connective tissue disease (5 sources) Trochanteric bursitis, unspecified hip; Translations: [Enthesopathy of hip region] 05-24-2024 Episodic Other diseases of veins and lymphatics (1 source) Lymphedema; Translations: [Lymphedema, not elsewhere classified] Chronic Other diseases of veins and lymphatics (10 sources) Venous insufficiency of leg; Translations: [Venous insufficiency (chronic) (peripheral)] 01-21-2024 Episodic Other diseases of veins and lymphatics (2 sources) Venous insufficiency (chronic) (peripheral); Translations: [Venous (peripheral) insufficiency, unspecified] 01-23-2024 Episodic Other gastrointestinal disorders (17 sources) Chronic idiopathic constipation; Translations: [Chronic idiopathic constipation] 01-20-2024 Chronic Other gastrointestinal disorders (3 sources) Chronic idiopathic constipation Chronic Other hematologic conditions (1 source) Splenic cyst; Translations: [Cyst of spleen] Episodic Other inflammatory condition of skin (2 sources) Seborrheic dermatitis; Translations: [Other seborrheic dermatitis] 09-11-2024 Episodic Other injuries and conditions due to external causes (1 source) History of fall; Translations: [History of falling] Episodic Other nervous system disorders (5 sources) Chronic pain; Translations: [Other chronic pain] 07-09-2024 Chronic Other nervous system disorders (12 sources) Other chronic pain; Translations: [Other chronic pain] Onset: 09-24-2024 07-09-2024 Chronic Other non-epithelial cancer of skin (14 sources) Squamous cell carcinoma of skin of face; Translations: [Squamous cell carcinoma of skin of unspecified parts of face] Onset: 09-01-2020 Episodic Other non-traumatic joint disorders (6 sources) Pain in right knee; Translations: [Pain in both knees] Onset: 09-24-2024 09-07-2024 Episodic Other non-traumatic joint disorders (1 source) Pain in left knee; Translations: [Pain in left knee] Onset: 09-24-2024 Episodic Other nutritional; endocrine; and metabolic disorders (8 sources) Morbid obesity; Translations: [Morbid (severe) obesity due to excess calories] Chronic Other nutritional; endocrine; and metabolic disorders (8 sources) Body mass index 40+ - severely obese; Translations: [Body mass index (BMI) 40.0-44.9, adult] Chronic Other nutritional; endocrine; and metabolic disorders (9 sources) Severe obesity; Translations: [Morbid (severe) obesity due to excess calories] 10-15-2024 Chronic Other nutritional; endocrine; and metabolic disorders (7 sources) Body mass index 30+ - obesity; Translations: [Body mass index (BMI) 38.0-38.9, adult] Chronic Other nutritional; endocrine; and metabolic disorders (3 sources) Morbid (severe) obesity due to excess calories Chronic Other nutritional; endocrine; and metabolic disorders (3 sources) Body mass index (BMI) 38.0-38.9, adult Chronic Other nutritional; endocrine; and metabolic disorders (10 sources) Obesity; Translations: [Obesity, unspecified] 01-23-2024 Chronic Other nutritional; endocrine; and metabolic disorders (10 sources) Obesity caused by energy imbalance; Translations: [Morbid (severe) obesity due to excess calories] 01-20-2024 Chronic Other nutritional; endocrine; and metabolic disorders (1 source) Obesity, unspecified; Translations: [Obesity, unspecified] 01-15-2025 Chronic Other screening for suspected conditions (not mental disorders or infectious disease) (2 sources) Encounter for screening mammogram for malignant neoplasm of breast Episodic Other skin disorders (5 sources) Localized swelling, mass and lump, left upper limb; Translations: [LOC SWELL MASS LUMP LT UPPER LIMB] Onset: 12-30-2021 Episodic Other skin disorders (17 sources) Alopecia; Translations: [Nonscarring hair loss, unspecified] 01-20-2024 Episodic Other skin disorders (2 sources) Lentiginosis; Translations: [Other melanin hyperpigmentation] 09-11-2024 Episodic Other skin disorders (2 sources) Seborrheic keratosis; Translations: [Other seborrheic keratosis] 09-11-2024 Episodic Other skin disorders (2 sources) Actinic keratosis; Translations: [Actinic keratosis] 09-11-2024 Episodic Other upper respiratory disease (18 sources) Vasomotor rhinitis; Translations: [Vasomotor rhinitis] 01-20-2024 Chronic Retinal detachments; defects; vascular occlusion; and retinopathy (1 source) Venous retinal branch occlusion; Translations: [Tributary (branch) retinal vein occlusion, unspecified eye, stable] Chronic Spondylosis; intervertebral disc disorders; other back problems (20 sources) Cervical spondylosis without myelopathy; Translations: [Spondylosis without myelopathy or radiculopathy, cervical region] Onset: 06-29-2024 Chronic Spondylosis; intervertebral disc disorders; other back problems (20 sources) Acute back pain with sciatica; Translations: [Lumbago with sciatica, right side] Onset: 06-29-2024 Episodic Thyroid disorders (18 sources) Non-toxic nodular goiter; Translations: [Nontoxic goiter, unspecified] 01-20-2024 Chronic Unclassified (1 source) Exposure to acute respiratory syndrome coronavirus 2; Translations: [Contact with and (suspected) exposure to COVID-19] Varicose veins of lower extremity (20 sources) Varicose veins of lower extremity with [...] 06-20-2018 Episodic Other aftercare (1 source) Other snf (current) drug therapy; Translations: [OTH LONGTERM CURRENT DRUG THERAPY] Onset: 05-21-2021 Episodic Other aftercare (16 sources) Long-term current 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; 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] Onset: 09-13-2024 09-13-2024 Episodic Other lower respiratory disease (1 source) Dyspnea; Translations: [Other forms of dyspnea] Onset: 06-20-2018 Episodic Residual codes; unclassified (1 source) Edema, generalized; Translations: [Generalized edema] Onset: 09-12-2018 Episodic Urinary tract infections (1 source) Urinary tract infectious disease; Translations: [Urinary tract infection, site not specified] Onset: 04-27-2017 Episodic Results Test Name Value Interpretation Reference Range Facility No Panel Informationon 01-18 Complexity: simple Destruction method: electrodesiccation and curettage Informed consent: discussed and consent obtained Informed consent comment: The risks of the procedure were discussed, including, but not limited to risks of scarring, darker or medical malpractice paralegal pigmentary changes, recurrence, infection, and incomplete removal Timeout: patient name, date of , surgical site, and procedure verified Timeout comment: Patient and provider identified site. Site was marked. Photo was taken and shown to patient, patient verified this is the correct site. Procedure prep: Patient was prepped and draped in usual sterile fashion Prep type: Chlorhexidine Anesthesia: the lesion was anesthetized in a standard fashion Anesthetic: 1% lidocaine w/ epinephrine 1-100,000 buffered w/ 8.4% NaHCO3 Curettage performed in three different directions: Yes Electrodesiccation performed over the curetted area: Yes Curettage cycles: 3 Lesion length (cm): 0.7 Lesion width (cm): 0.7 Margin per side (cm): 0 Final wound size (cm): 0.7 Hemostasis achieved with: aluminum chloride Outcome: patient tolerated procedure well with no complications Post-procedure details: wound care instructions given Post-procedure details comment: Post-procedure instructions were given verbally and in writing. The office will be contacted if the lesion fails to resolve despite treatment, or if a side effect develops such as abnormal crusting, scabbing, reddness, discharge, or tenderness. Additional details: Amount of lidocaine used: 3 cc Previous accession number: [id number] Formerly [facility], [facility] Glucose (Bld) [Mass/Vol]Orde red By: Apolonia Huddleston on 10-15-2024 Glucose Blood, POC 161 mg/dL [facility] XR knee BI 4Von 09-24-2024 XR knee BI 4V [facility] [place] [address] XRay Report Signed Patient: Usha Gottlieb MR#: [id number] : 1940 Acct:[id number] Age/Sex: 84 / F ADM Date: 09/24/24 Loc: XD Room: Type: [facility] Attending Dr: Phillip Fox MD Copies to: Phillip Fox MD Ordering Provider: Phillip Fox MD Date of Service: 09/24/24 XR/XR knee BI 4V: M25.561 - Pain in right knee BILATERAL KNEES - 4 views each CLINICAL HISTORY: Bilateral knee pain, greater on the left. COMPARISON: None AP, lateral and both oblique views of both knees were obtained. There is osteopenia. No acute fractures or dislocation are identified. There is moderate to severe narrowing of the medial tibiofemoral joint compartments, greater on the left. There is tricompartment marginal spurring bilaterally. 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 There is a small amount of joint fluid on the right and a trace amount on the left. XR/XR knee BI 4V IMPRESSION: OSTEOPENIA AND DEGENERATIVE CHANGES. Impression dictated by: Kena Echols M.D.09/24/2024 3:56 PM Dictation Location: [place] [address] Transcribed By: [facility] 09/24/24 1556 Dictated By: Kena Echols MD 09/24/24 1553 Signed By: 09/24/24 1556 Normal [facility] No Panel Informationon 09-11 Type of biopsy: tangential Informed consent: discussed and consent obtained Informed consent comment: The risks and benefits of the biopsy were discussed. Risks include but are not limited to bleeding, infection, scarring, pain, and nerve damage. An opportunity to ask questions prior to the procedure was permitted and all questions were answered. Patient was prepped and draped in usual sterile fashion: area cleansed with alcohol. Anesthesia: the lesion was anesthetized in a standard fashion Anesthetic: 1% lidocaine w/ epinephrine 1-100,000 buffered w/ 8.4% NaHCO3 Instrument used: DermaBlade Hemostasis achieved with: electrodesiccation Outcome: patient tolerated procedure well Outcome comment: The specimen was placed in a prelabeled formalin container to be sent for pathology Post-procedure details: sterile dressing applied and wound care instructions given Post-procedure details comment: Emphasized need to contact clinic for any signs of infection, uncontrollable bleeding, or complications. 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 ([id number]) XR/XR thoracic spine 3V*: M54.6 - Pain in thoracic spine CLINICAL DATA: Right back pain between the shoulder blades and pain, numbness and tingling at the right leg. No reported injury. THORACIC SPINE - 3 views: COMPARISON: None AP, lateral and swimmer's views were obtained. There is osteopenia. There is no evidence of compression fracture or displacement. The pedicles are intact. There is multilevel endplate spurring. There are no paraspinal soft tissue abnormalities. XR/XR thoracic spine 3V* IMPRESSION: OSTEOPENIA AND DEGENERATIVE CHANGES. NO ACUTE BONY FINDINGS. LUMBAR SPINE WITH FLEXION-EXTENSION VIEWS - 4 VIEWS COMPARISON: 10/05/2023 AP standing as well as lateral views in neutral, flexion and extension were obtained. There is osteopenia. Partial sacralization of L5 is seen on the right. Slight levoscoliotic curvature is again noted. No acute fractures are identified. There is continued slight retrolisthesis of L2 on L3 and anterolisthesis of L3 on L4. Alignment does not change significantly with flexion or extension. There is disc space narrowing at L2-3, L4-5 and the lumbosacral junction. Endplate spurring is present throughout. There is lower lumbar facet hypertrophy. The SI joints show minor sclerosis. There is atherosclerotic plaque at the aorta and iliac arteries. IMPRESSION: OSTEOPENIA, SCOLIOSIS AND DEGENERATIVE CHANGES DESCRIBED. Impression dictated by: Kena Echols M.D.06/29/2024 3:56 PM Dictation Location: [place] [address] Transcribed By: [facility] 06/29/24 155 Dictated By: Kena Echols MD 06/29/24 155 Signed By: 06/29/24 155 Normal [facility] Nonvisit Note - PTon 024 Nonvisit Note - PT Nonvisit Note - PT Pt cancelled when PT called to ask her how she was doing. pt states she feels better during and immediately after treatments however; her pain returns. Pt states she is having a referral to see Dr. Srivastava but it is not scheduled yet. Pt states she does not want to do pain management. Pt states the therapy is not helping and discussed that chart will be placed on hold. Normal [facility] Nonvisit Note - PTon 024 Nonvisit Note - PT Nonvisit Note - PT Pt cancelled in auto remind system. AMK Normal [facility] Insurance Correspondenceon 0 04-05-2024 Insurance Correspondence [id number]#1. 00[facility] PT - Assessmentson PT - Assessments [id number]#1. 00[facility] PT - Assessments [id number] 04 [id number]#1. 00[facility] Nonvisit Note - PTon 024 Nonvisit Note - PT Pt called to cancel as she is not feeling well. [facility] Consent for Treatmenton Consent for Treatment [id number]#1. 00[facility] [facility] PT - Assessmentson PT - Assessments [id number]#1. 00[employer] [facility] PT - Consentson 02-23-2024 PT - Consents [id number]#1. 00[employer] [facility] PT - Home Exercise Programon 02-23-2024 PT - Home Exercise Program [id number]#1. [facility] [facility] PT - [place] 02-20-2024 PT - Orders [id number] 01 [id number]#1. 00[facility] PT - Otheron 02-20-2024 PT - Other PT phoned pt to [place] [facility] pt of approval and pt requested to wait until next week as she reports she will not have enough time to schedule a ride. Pt scheduled for next week and pt states she will check to see if she has a ride. [facility] Insurance Correspondenceon 0 02-17-2024 Insurance Correspondence [id number]#1. [facility] [facility] PT - [place] 02-14-2024 PT - Orders [id number] 02 [id number]#1. 00[facility] [facility] US EXT NON VASC LIMITED LTon 12-30-2021 [...] MARIXA HERNÁNDEZ Date: 2021-12-30 15:18 Normal [facility] C-PEPTIDE, SERUMon 2 C-Peptide, Serum 2.3 ng/mL Normal 1.1-4.4 [facility] Comment on above: Result Comment: C-Pe ptide reference interval is for fasting patients. Performed By: #### C PEPT #### [facility] [address] [place] [address] [address] Heidi Knapp LIPID PROFILEon 12-25-2021 CHOL-HDL RATIO NORM SEE BELOW Normal [facility] Comment on above: Result Comment: 3.3 - 4.4 LOW RISK 4.4 - 7.1 AVERAGE RISK 7.1 - 11.0 MODERATE RISK >11.0 HIGH RISK Performed By: #### R ENAL, LIPID #### [facility] [address] [place] [address] [address] Heidi Knapp Cholesterol [Mass/Vol] 241 mg/dL Critically high <=200 [facility] Comment on above: Performed By: #### R ENAL, LIPID #### [facility] [address] [place] [address] [address] Heidi Knapp Cholesterol in HDL [Mass/Vol] 53 mg/dL Normal [facility] Comment on above: Performed By: #### R ENAL, LIPID #### [facility] [address] [place] [address] [address] Heidi Knapp Cholesterol in LDL [Mass/Vol] 139.8 mg/dL Normal [facility] Comment on above: Performed By: #### R ENAL, LIPID #### [facility] [address] [place] [address] [address] Heidi Knapp Cholesterol.total/Chol esterol in HDL [Mass ratio] 4.5 {ratio} Normal [facility] Comment on above: Performed By: #### R ENAL, LIPID #### [facility] [address] [place] [address] [address] Heidi Knapp HDL NORMAL > or = 60 mg/dl - LO W CARDIOVASCULAR RISK <40 mg/dl - HIGH CARDIOVASCULAR RISK Normal [facility] Comment on above: Performed By: #### R ENAL, LIPID #### [facility] [address] [place] [address] [address] Heidi Knapp LDL CALC NORMAL SEE BELOW Normal [facility] Comment on above: Result Comment: <100 mg/dl OPTIMAL 100 - 129 mg/dl NEAR OR ABOVE OPTIMAL 130 - 159 mg/dl BORDERLINE HIGH 160 - 189 mg/dl HIGH >190 mg/dl VERY HIGH Performed By: #### R ENAL, LIPID #### [facility] [address] [place] [address] [address] Heidi Knapp Triglyceride [Mass/Vol] 241 mg/dL Critically high <=150 [facility] Comment on above: Performed By: #### R ENAL, LIPID #### [facility] [address] [place] [address] [address] Heidi Knapp VLDL CALC 48.2 mg/dL Normal [facility] Comment on above: Performed By: #### R ENAL, LIPID #### [facility] [address] [place] [address] [address] Heidi Knapp MICROALB CREAT RATIO RANDOMo n 12-25-2021 mALB 6.9 mg/L Normal <=30.0 [facility] Comment on above: Performed By: #### M CRR #### [facility] [address] [place] [address] [address] Heidi Knapp MALB CR RATIO 31.4 mg/g Critically high 0.0-29.9 [facility] Comment on above: Performed By: #### M CRR #### [facility] [address] [place] [address] [address] Heidi Knapp MALB CR RATIO RANGE SEE BELOW Normal [facility] Comment on above: Result Comment: NO M ICROALBUMINURIA 0-29 MG/G CLINICAL MICROALBUMINURIA 30-300 MG/G MACROALBUMINURIA >300 MG/G Performed By: #### M CRR #### [facility] [address] [place] [address] [address] Heidi Knapp URINE CREAT 219.98 mg/dL Normal 20.00-300.00 [facility] Comment on above: Performed By: #### M CRR #### [facility] [address] [place] [address] [address] Heidi Knapp RENAL FUNCTION PANELon 12-25 Albumin [Mass/Vol] 3.9 g/dL Normal 3.5-5.0 [facility] Comment on above: Performed By: #### R ENJENNIFER, LIPID ####[facility] [address] [place] [address]DrMarine Knapp Calcium [Mass/Vol] 9.4 mg/dL Normal 8.4-10.2 [facility] Comment on above: Performed By: #### R FRANCE, LIPID ####[facility] [address] [place] [address]DrMarine Knapp Chloride [Moles/Vol] 104 mmol/L Normal 98-107 [facility] Comment on above: Performed By: #### R FRANCE LIPID ####[facility] [address] [place] [address]DrMarine Knapp CO2 [Moles/Vol] 28.4 mmol/L Normal 22.0-30.0 [facility] Comment on above: Performed By: #### R FRANCE, LIPID ####[facility] [address] [place] [address]DrMarine Knapp Creatinine [Mass/Vol] 0.82 mg/dL Normal 0.52-1.04 [facility] Comment on above: Performed By: #### R ENJENNIFER, LIPID ####[facility] [address] [place] [address]Dr. Heidi Knapp EGFR-AF ALGERIAN >60 Normal >=60 [facility] Comment on above: Performed By: #### R ENJENNIFER, LIPID ####[facility] [address] [place] [address]Dr. Heidi Knapp EGFR-NON AF ALGERIAN >60 Normal >=60 [facility] Comment on above: Performed By: #### R ENJENNIFER, LIPID ####[facility] [address] [place] [address]Dr. Heidi Knapp Glucose [Mass/Vol] 125 mg/dL Critically high 74-106 T [facility] Comment on above: Performed By: #### R FRANCE, LIPID ####[facility] [address] [place] [address]Dr. Heidi Knapp Phosphate [Mass/Vol] 2.9 mg/dL Normal 2.5-4.5 [facility] Comment on above: Performed By: #### R FRANCE, LIPID ####[facility] [address] [place] [address]Dr. Heidi Knapp Potassium [Moles/Vol] 4.7 mmol/L Normal 3.4-5.0 [facility] Comment on above: Performed By: #### R FRANCE, LIPID ####[facility] [address] [place] [address]Dr. Heidi Knapp Sodium [Moles/Vol] 140 mmol/L Normal 137-145 [facility] Comment on above: Performed By: #### R FRANCE, LIPID ####[facility] [address] [place] [address]Dr. Heidi Knapp Urea nitrogen [Mass/Vol] 15.0 mg/dL Normal 7.0-17.0 [facility] Comment on above: Performed By: #### Jarek HOUGH, LIPID ####[facility] [address] [place] [address]Dr. Heidi Knapp VITAMIN D 25 OHon 12-25-2021 VIT D 25-OH 23.8 ng/mL Normal [facility] Comment on above: Performed By: #### V ITAD #### [facility] [address] [place] [address] Dr. Heidi Knapp VIT D RANGES SEE BELOW Normal [facility] Comment on above: Result Comment: <20 ng/mL Vit D deficient 20 - <30 ng/mL Vit D insufficient 30 - 100 ng/mL Vit D sufficient >100 ng/mL Potential Toxicity Performed By: #### V ITAD #### [facility] [address] [place] [address] [address] Heidi Knapp CBC AUTO DIFFon 05-18-2021 BASO # 0.0 103/ul Normal 0.0-0.1 [facility] Comment on above: Performed By: #### C BC #### [facility] [address] [place], [place] [address] Marianela Kena Basophils/100 WBC (Bld) 0.2 % Normal 0.2-2.0 [facility] Comment on above: Performed By: #### C BC #### [facility] [address] [place], [place] [address] Marianela Kena EO # 0.1 103/ul Normal 0.0-0.7 [facility] Comment on above: Performed By: #### C BC #### [facility] [address] [place], [place] [address] Marianela Kena Eosinophils/100 WBC (Bld) 0.9 % Normal 0.9-7.0 [facility] Comment on above: Performed By: #### C BC #### [facility] [address] [place], [place] [address] Marianela Kena Erythrocyte distribution width (RBC) [Ratio] 12.5 % Normal 11.0-15.0 [facility] Comment on above: Performed By: #### C BC #### [facility] [address] [place], [place] [address] Marianela Kena Hematocrit (Bld) [Volume fraction] 42.0 % Normal 36.0-48.0 [facility] Comment on above: Performed By: #### C BC #### [facility] [address] [place], [place] [address] Marianela Kena Hemoglobin (Bld) [Mass/Vol] 13.8 g/dL Normal 12.0-16.0 [facility] Comment on above: Performed By: #### C BC #### [facility] [address] [place], [place] [address] Marianela Kena IG # 0.03 10e3/ul Normal 0.00-0.03 [facility] Comment on above: Performed By: #### C BC #### [facility] [address] [place], [place] [address] Marianela Kena IG % 0.3 % Normal 0.0-0.5 [facility] Comment on above: Performed By: #### C BC #### [facility] [address] [place], [place] [address] Marianela Kena LYMPH # 3.2 103/ul Normal 1.2-3.8 [facility] Comment on above: Performed By: #### C BC #### [facility] [address] [place], [place] [address] Marianela Kena Lymphocytes/100 WBC (Bld) 29.0 % Normal 20.5-60.0 [facility] Comment on above: Performed By: #### C BC #### [facility] [address] [place], [place] [address] Marianela Kena MANUAL DIFF REQ NO Normal [facility] Comment on above: Performed By: #### C BC #### [facility] [address] [place] [address] Marianela Kena MCH (RBC) [Entitic mass] 30.5 pg Normal 26.7-34.0 [facility] Comment on above: Performed By: #### C BC #### [facility] [address] [place], [place] [address] Marianelayennifer Arten MCHC (RBC) [Mass/Vol] 32.9 g/dL Normal 29.9-35.2 [facility] Comment on above: Performed By: #### C BC #### [facility] [address] [place], [place] [address] Marianela Kena MCV (RBC) [Entitic vol] 92.9 fL Normal 81.0-99.0 [facility] Comment on above: Performed By: #### C BC #### [facility] [address] [place], [place] [address] Marianela Kena MONO # 0.9 103/ul Critically high 0.3-0.8 [facility] Comment on above: Performed By: #### C BC #### [facility] [address] [place], [place] [address] Marianela Kena Monocytes/100 WBC (Bld) 8.4 % Normal 1.7-12.0 [facility] Comment on above: Performed By: #### C BC #### [facility] [address] [place], [place] [address] Marianela Escudero NEUT # 6.8 103/ul Critically high 1.4-6.5 [facility] Comment on above: Performed By: #### C BC #### [facility] [address] [place], [place] [address] Marianela Escudero Neutrophils/100 WBC (Bld) 61.2 % Normal 43.0-75.0 [facility] Comment on above: Performed By: #### C BC #### [facility] [address] [place], [place] [address] Marianelayennifer Escudero Platelet mean volume (Bld) [Entitic vol] 9.8 fL Normal 9.5-13.5 [facility] Comment on above: Performed By: #### C BC #### [facility] [address] [place], [place] [address] Marianela Kena PLT 253 103/ul Normal 150-450 [facility] Comment on above: Performed By: #### C BC #### [facility] [address] [place], [place] [address] Marianela Kena RBC 4.52 106/ul Normal 4.20-5.40 [facility] Comment on above: Performed By: #### C BC #### [facility] [address] [place], [place] [address] Marianela Kena WBC 11.1 103/ul Critically high 4.0-11.0 [facility] Comment on above: Performed By: #### C BC #### [facility] [address] [place] [id number] Marianela Escudero GLYCOHEMOGLOBIN A1Con 2020 ADA RECOMMENDATION ADA THERAPEUTIC TARG ET 6.0 - 7.0 ACTION SUGGESTED > 7.0 Normal [facility] Comment on above: Performed By: #### A 1C #### [facility] [address] [place], [place] [address] Marianela Escudero Glucose [Mass/Vol] 148 mg/dL Normal [facility] Comment on above: Performed By: #### A 1C #### [facility] [address] [place], [place] [address] Marianela Kena HbA1c (Bld) [Mass fraction] 6.8 % Critically high <=6.0 [facility] Comment on above: Performed By: #### A 1C #### [facility] [address] [place], [place] [address] Marianela Kena LIPID PROFILEon 05-18-2021 CHOL-HDL RATIO NORM SEE BELOW Normal [facility] Comment on above: Result Comment: 3.3 - 4.4 LOW RISK 4.4 - 7.1 AVERAGE RISK 7.1 - 11.0 MODERATE RISK >11.0 HIGH RISK Performed By: #### B MP, LIPID #### [facility] [address] [place], [place] [address] Marianela Kena Cholesterol [Mass/Vol] 255 mg/dL Critically high <=200 [facility] Comment on above: Performed By: #### B MP, LIPID #### [facility] [address] [place], [place] [address] Marianela Kena Cholesterol in HDL [Mass/Vol] 49 mg/dL Normal [facility] Comment on above: Performed By: #### B MP, LIPID #### [facility] [address] [place], [place] [address] Marianela Kena Cholesterol in LDL [Mass/Vol] 173.2 mg/dL Normal [facility] Comment on above: Performed By: #### B MP, LIPID #### [facility] [address] [place], [place] [address] Marianela Kena Cholesterol.total/Chol esterol in HDL [Mass ratio] 5.2 {ratio} Normal [facility] Comment on above: Performed By: #### B MP, LIPID #### [facility] [address] [place], [place] [address] Marianela Kena HDL NORMAL > or = 60 mg/dl - LO W CARDIOVASCULAR RISK <40 mg/dl - HIGH CARDIOVASCULAR RISK Normal [facility] Comment on above: Performed By: #### B MP, LIPID #### [facility] [address] [place], [place] [address] Marianela Kena LDL CALC NORMAL SEE BELOW Normal [facility] Comment on above: Result Comment: <100 mg/dl OPTIMAL 100 - 129 mg/dl NEAR OR ABOVE OPTIMAL 130 - 159 mg/dl BORDERLINE HIGH 160 - 189 mg/dl HIGH >190 mg/dl VERY HIGH Performed By: #### B MP, LIPID #### [facility] [address] [place], [place] [address] Marianela Kena Triglyceride [Mass/Vol] 164 mg/dL Critically high <=150 [facility] Comment on above: Performed By: #### B MP, LIPID #### [facility] [address] [place], [place] [address] Marianela Kena VLDL CALC 32.8 mg/dL Normal [facility] Comment on above: Performed By: #### B MP, LIPID #### [facility] [address] [place], [place] [address] Marianela Kena MICROALBUMIN, RAND URon 07-2 mALB 1.4 mg/L Normal <=30.0 [facility] Comment on above: Performed By: #### M ALBR #### [facility] [address] [place], [place] [address] Marianela Kena PROF CHEM 8 (BAS METB)on Anion gap [Moles/Vol] 16.6 mmol/L Normal [facility] Comment on above: Performed By: #### B MP, LIPID #### [facility] [address] [place], [place] [address] Marianela Kena Calcium [Mass/Vol] 9.4 mg/dL Normal 8.4-10.2 [facility] Comment on above: Performed By: #### B MP, LIPID #### [facility] [address] [place], [place] [address] Marianela Kena Chloride [Moles/Vol] 106 mmol/L Normal 98-107 [facility] Comment on above: Performed By: #### B MP, LIPID #### [facility] [address] [place], [place] [address] Marianela Kena CO2 [Moles/Vol] 24.5 mmol/L Normal 22.0-30.0 [facility] Comment on above: Performed By: #### B MP, LIPID #### [facility] [address] [place] [id number] Marianela Kena Creatinine [Mass/Vol] 0.87 mg/dL Normal 0.52-1.04 [facility] Comment on above: Performed By: #### B MP, LIPID #### [facility] [address] [place] [id number] Marianela Kena EGFR-AF ALGERIAN >60 Normal >=60 [facility] Comment on above: Performed By: #### B MP, LIPID #### [facility] [address] [place] [id number] Marianela Kena EGFR-NON AF ALGERIAN >60 Normal >=60 [facility] Comment on above: Performed By: #### B MP, LIPID #### [facility] [address] [place] [address] Marianela Kena Glucose [Mass/Vol] 94 mg/dL Normal 74-106 [facility] Comment on above: Performed By: #### B MP, LIPID #### [facility] [address] [place] [address] Marianela Kena Potassium [Moles/Vol] 4.1 mmol/L Normal 3.4-5.0 [facility] Comment on above: Performed By: #### B MP, LIPID #### [facility] [address] [place] [address] Marianlea Kena Sodium [Moles/Vol] 143 mmol/L Normal 137-145 [facility] Comment on above: Performed By: #### B MP, LIPID #### [facility] [address] [place] [address] Marianela Kena Urea nitrogen [Mass/Vol] 18.0 mg/dL Critically high 7.0-17.0 [facility] Comment on above: Performed By: #### B MP, LIPID #### [facility] [address] [place] [address] Marianela Kena Urea nitrogen/Creatinine [Mass ratio] 20.7 mg/mg Normal [facility] Comment on above: Performed By: #### B MP, LIPID #### [facility] [address] [place], [place] [address] Marianela Kena Dermatopathologyon 1 Dermatopathology [facility] [address] [place] [id number] DERMATOPATHOLOGY REPORT Name:USHA GOTTLIEB [facility] Rec #. [id number] Location: [facility] Date of Procedure: 01/19/2021 Race: Date Received: 01/21/2021 /Sex: 1940 (Age: 80) / F Date Reported: 01/22/2021 Other: Submitting Physician:USHA BERG MD FINAL DIAGNOSIS SKIN, L CHEEK, BIOPSY: BASAL CELL CARCINOMA, NODULAR GROWTH PATTERN, PRESENT ON THE DEEP AND PERIPHERAL MARGIN. Electronically Signed Out by ROOPA NELSON M.D. Electronically Signed Out By ROOPA NELSON MD/[facility] By the signature on this report, the individual or group listed as making the Final Interpretation/Diagnos is certifies that they have reviewed this case. Clinical History: BCC. 1.0 x 0. Biopsy. Specimens Submitted As: A: SKIN, L CHEEK Gross Description: Received in formalin is a rome piece of skin measuring 7 x 6 x 1 mm. Inked and embedded in toto. [facility]/01/21/2021 Microscopic Description: Microscopic analysis shows a discrete nodule of tumor that is associated with the epidermis. The carcinoma is composed of bland basaloid keratinocytes with peripheral palisaded arrangement of nuclei. Normal [facility] Comment on above: Performed By: #### D #### Dermatopathology Dermatopathologyon 0 Dermatopathology [facility] Dermatopathology Laboratory [address] [place] [id number] DERMATOPATHOLOGY REPORT Name:USHA GOTTLIEB [facility] Rec #. 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 Note: The tumor is at least 1.1 mm in thickness and extends into at least the superficial reticular dermis. No perineural or lymphovascular invasion is seen. Electronically Signed Out by ROOPA NELSON M.D. Electronically Signed Out By ROOPA NELSON MD/[facility] By the signature on this report, the individual or group listed as making the Final Interpretation/Diagnos is certifies that they have reviewed this case. Clinical History: SCC vs ISK. 1.0 x 0.8 cm. Shave Biopsy. Specimens Submitted As: A: SKIN, R CHEEK Gross Description: Received in formalin is one rome-brown piece of skin measuring [id number]. The specimen is inked and embedded in [...] the interface between tumor and dermis. Normal [facility] Comment on above: Performed By: #### D #### Dermatopathology Vital Signs Date Time Vital Sign Value Performing Clinician Facility 01-15-2025 14:39040 Body height 170.18 cm [facility] 01-15-2025 14:39-0400 Body mass index (BMI) [Ratio] 36.6 kg/m2 [facility] 01-15-2025 14:39040 Body weight 105.91 kg [facility] 01-15-2025 14:39-0400 Diastolic blood pressure 82 mm[Hg] [facility] 01-15-2025 14:39-0400 Heart rate 70 /min [facility] 01-15-2025 14:390400 Respiratory rate 12 /min [facility] 01-15-2025 14:39-0400 Systolic blood pressure 132 mm[Hg] [facility] 11-02-2024 11:33-0500 Body weight 107.95 kg Nilton Ball DO Work Phone: [facility] 11-02-2024 11:33-0500 Diastolic blood pressure 70 mm[Hg] Nilton Ball DO Work Phone: [facility] 11-02-2024 11:33-0500 Heart rate 72 /min Nilton Ball DO Work Phone: [facility] 11-02-2024 11:33-0500 SaO2% (BldA) [Mass fraction] 97 % Nilton Ball DO Work Phone: [facility] 11-02-2024 11:33-0500 Systolic blood pressure 112 mm[Hg] Nilton Ball DO Work Phone: [facility] 10-15-2024 14:50-0500 Body height 170.2 cm Sav Rodríguez MD Work Phone: [facility] 10-15-2024 14:50-0500 Body mass index (BMI) [Ratio] 37.9 kg/m2 Sav Rodríguez MD Work Phone: [facility] 10-15-2024 14:50-0500 Body weight 109.77 kg Sav Rodríguez MD Work Phone: [facility] 10-15-2024 14:50-0500 Diastolic blood pressure 90 mm[Hg] Sav Rodríguez MD Work Phone: [facility] 10-15-2024 14:50-0500 Heart rate 69 /min Sav Rodríguez MD Work Phone: [facility] 10-15-2024 14:50-0500 Respiratory rate 16 /min Sav Rodríguez MD Work Phone: [facility] 10-15-2024 14:50-0500 Systolic blood pressure 150 mm[Hg] Sav Rodríguez MD Work Phone: [facility] 09-07-2024 12:04-0500 Body weight 109.76 kg Nilton Ball DO Work Phone: [facility] 09-07-2024 12:04-0500 Diastolic blood pressure 70 mm[Hg] Nilton Ball DO Work Phone: [facility] 09-07-2024 12:04-0500 Heart rate 80 /min Nilton Ball DO Work Phone: [facility] 09-07-2024 12:04-0500 SaO2% (BldA) [Mass fraction] 97 % Nilton Ball DO Work Phone: [facility] 09-07-2024 12:04-0500 Systolic blood pressure 118 mm[Hg] Nilton Ball DO Work Phone: [facility] 07-26-2024 14:21-0400 Diastolic blood pressure 70 mm[Hg] DO Nilton Ball Work Phone: [facility] 07-26-2024 14:21-0400 Heart rate 59 /min DO Nilton Ball Work Phone: [facility] 07-26-2024 14:21-0400 SaO2% (BldA) [Mass fraction] 97 % DO Nilton Ball Work Phone: [facility] 07-26-2024 14:21-0400 Systolic blood pressure 110 mm[Hg] DO Nilton Ball Work Phone: [facility] 07-09-2024 13:22-0400 Diastolic blood pressure 74 mm[Hg] DO Nilton Ball Work Phone: [facility] 07-09-2024 13:22-0400 Heart rate 89 /min DO Nilton Ball Work Phone: [facility] 07-09-2024 13:22-0400 SaO2% (BldA) [Mass fraction] 97 % DO Nilton Ball Work Phone: [facility] 07-09-2024 13:22-0400 Systolic blood pressure 118 mm[Hg] DO Nilton Ball Work Phone: [facility] 06-26-2024 14:39-0400 Body height 167.64 cm [facility] 06-26-2024 14:39-0400 Body mass index (BMI) [Ratio] 37.1 kg/m2 [facility] 06-26-2024 14:39-0400 Body weight 104.32 kg [facility] 05-24-2024 14:03-0400 Body weight 104.32 kg [facility] 01-23-2024 14:59-0400 Body height 167.64 cm [facility] 01-23-2024 14:59-0400 Body mass index (BMI) [Ratio] 38.9 kg/m2 [facility] 01-23-2024 14:59-0400 Body weight 109.54 kg [facility] 01-23-2024 14:59-0400 Diastolic blood pressure 82 mm[Hg] [facility] 01-23-2024 14:59-0400 Heart rate 76 /min [facility] 01-23-2024 14:59-0400 Respiratory rate 16 /min [facility] 01-23-2024 14:59-0400 Systolic blood pressure 132 mm[Hg] [facility] 09-23-2023 14:30-0500 Body height 167.64 cm Nilton Ball Other [facility] [employer] Other 09-23-2023 14:30-0500 Body mass index (BMI) [Ratio] 38.89 kg/m2 Nilton Ball Other [facility] [employer] Other 09-23-2023 14:30-0500 Body weight 109.32 kg Nilton Ball Other [facility] [employer] Other 09-23-2023 14:30-0500 Diastolic blood pressure 82 mm[Hg] Nilton Ball Other [facility] [employer] Other 09-23-2023 14:30-0500 Respiratory rate 20 /min Nilton Ball Other [facility] [employer] Other 09-23-2023 14:30-0500 Systolic blood pressure 126 mm[Hg] Nilton Ball Other [facility] Other 05-25-2023 14:30-0400 Body height 167.64 cm Nilton Ball Other [facility] Other 05-25-2023 14:30-0400 Body mass index (BMI) [Ratio] 39.18 kg/m2 Nilton Ball Other [facility] Other 05-25-2023 14:30-0400 Body weight 110.13 kg Nilton Ball Other [facility] Other 05-25-2023 14:30-0400 Diastolic blood pressure 82 mm[Hg] Nilton Ball Other [facility] Other 05-25-2023 14:30-0400 Respiratory rate 20 /min Nilton Ball Other [facility] Other 05-25-2023 14:30-0400 Systolic blood pressure 124 mm[Hg] Nilton Ball Other [facility] Other 04-15-2023 14:00-0400 Body height 167.64 cm Nilton Ball Other [facility] Other 04-15-2023 14:00-0400 Body mass index (BMI) [Ratio] 38.44 kg/m2 Nilton Ball Other [facility] Other 04-15-2023 14:00-0400 Body weight 108.05 kg Nilton Ball Other [facility] Other 04-15-2023 14:00-0400 Diastolic blood pressure 86 mm[Hg] Nilton Ball Other [facility] Other 04-15-2023 14:00-0400 Respiratory rate 20 /min Nilton Ding Other [facility] Other 04-15-2023 14:00-0400 Systolic blood pressure 136 mm[Hg] Nilton Ding Other [facility] Other Encounters Encounter Date Encounter Type Care Provider Facility Start: 01-18-2025 End: 01-18-2025 Bamboo flowsheet Jackelyn Howard MD Work Phone: [facility] Start: 01-18-2025 End: 01-18-2025 Bamsterlingo flowsheet Jackelyn Howard MD Work Phone: [facility] Start: 01-18-2025 End: 01-18-2025 Patient encounter procedure Jackelyn Howard MD Work Phone: [facility] Comment on above: Basal cell carcinoma of skin of other part of trunk (Primary Dx) Start: 01-18-2025 End: 01-18-2025 ambulatory JACKELYN HOWARD Not Available Start: 01-15-2025 End: 01-15-2025 ambulatory [facility] Work Phone: Start: 01-15-2025 End: 01-15-2025 Patient encounter procedure [facility] Work Phone: Start: 01-12-2025 Patient encounter procedure [facility] Start: 11-02-2024 End: 11-02-2024 ambulatory Nilton Ball DO Work Phone: [facility] Work Phone: Start: 11-02-2024 End: 11-02-2024 Patient encounter procedure Nilton Ball DO Work Phone: [facility] [place] Work Phone: Start: 10-15-2024 End: 10-15-2024 Office outpatient visit 25 minutes Sav Rodríguez MD Work Phone: [facility] Comment on above: Type 2 diabetes jace itus with hyperglycemia, with long-term current 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 ([facility]) (Primary Dx); Essential (primary) hypertension ([facility]); Vitamin D deficiency, unspecified; Mixed hyperlipidemia ([facility]); 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) 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 ([facility]); Class 2 severe obesity due to excess calories with serious comorbidity and body mass index (BMI) of 37.0 to 37.9 in adult ([facility]) Start: 10-15-2024 End: 10-15-2024 ambulatory SAV RODRÍGUEZ Not Available Start: 10-15-2024 End: 10-15-2024 Bamboo flowsheet Sav Rodríguez MD Work Phone: [facility] Start: 10-15-2024 End: 10-15-2024 Bamboo flowsheet Sav Rodríguez MD Work Phone: [facility] Start: 09-24-2024 End: 09-24-2024 Patient encounter procedure Nilton Ding DO Work Phone: [facility] Work Phone: Start: 09-24-2024 End: 09-24-2024 ambulatory Phillip Conor Fox Facility:[facility] Start: 09-11-2024 End: 09-11-2024 Office outpatient visit 25 minutes Jackelyn Howard MD Work Phone: [facility] Comment on above: Other seborrheic yadi matitis (Primary Dx); History of basal cell carcinoma; History of SCC (squamous cell carcinoma) of skin; Angioma of skin; Lentigines; Seborrheic keratosis; Actinic keratosis; Neoplasm of unspecified behavior of bone, soft tissue, and skin Start: 09-11-2024 End: 09-11-2024 ambulatory JACKELYN HOWARD Not Available Start: 09-11-2024 End: 09-11-2024 Bamboo flowsheet Jackelyn Howard MD Work Phone: [facility] Start: 09-11-2024 End: 09-11-2024 Gigi realheet Jackelyn Howard MD Work Phone: [facility] Start: 09-07-2024 End: 09-07-2024 ambulatory Nilton Ball DO Work Phone: [facility] Work Phone: Start: 09-07-2024 End: 09-07-2024 Patient encounter procedure Nilton Ball DO Work Phone: [facility] [place] Work Phone: Start: 08-02-2024 End: 08-02-2024 ambulatory DO Nilton Ball Work Phone: [facility] Work Phone: Start: 08-02-2024 End: 08-02-2024 Patient encounter procedure DO Nilton Ball Work Phone: [facility] Work Phone: Start: 08-02-2024 Non-patient / Non-visit Benjam in Ball DO Work Phone: [facility] Work Phone: Start: 07-26-2024 End: 07-26-2024 ambulatory DO Nilton Ball Work Phone: [facility] Work Phone: Start: 07-26-2024 End: 07-26-2024 Patient encounter procedure DO Nilton Ball Work Phone: [facility] Work Phone: Start: 07-17-2024 Non-patient / Non-visit DO Kd bird Ball Work Phone: [facility] Work Phone: Start: 07-09-2024 End: 07-09-2024 ambulatory DO Nilton Ball Work Phone: [facility] Work Phone: Start: 07-09-2024 End: 07-09-2024 Patient encounter procedure DO Nilton Ding Work Phone: [facility] Work Phone: Start: 06-29-2024 End: 06-29-2024 Patient encounter procedure DO Nilton Ding Work Phone: [facility] [place] Work Phone: Start: 06-29-2024 End: 06-29-2024 ambulatory DO Nilton Ding Work Phone: [facility] Work Phone: Start: 06-26-2024 End: 06-26-2024 ambulatory [facility] Work Phone: Start: 06-26-2024 End: 06-26-2024 Patient encounter procedure [facility] Work Phone: Start: 05-24-2024 End: 05-24-2024 ambulatory [facility] Work Phone: Start: 05-24-2024 End: 05-24-2024 Patient encounter procedure [facility] Work Phone: Start: 02-15-2024 End: 07-01-2024 ambulatory NILTON DING Facility:[facility] Start: 01-23-2024 End: 01-23-2024 ambulatory [facility] Work Phone: Start: 01-23-2024 End: 01-23-2024 Patient encounter procedure [facility] Work Phone: Start: 10-07-2023 End: 10-07-2023 ambulatory Nilton Ding Other [facility] Other Start: 10-07-2023 Telephone encounter Nilton Ding [facility] Start: 10-06-2023 End: 10-06-2023 ambulatory Nilton Ding Other [facility] Other Start: 10-06-2023 Telephone encounter Nilton Ding [facility] Start: 09-29-2023 End: 09-29-2023 ambulatory Nilton Ding Other [facility] Other Start: 09-29-2023 Telephone encounter Nilton Ding [facility] Start: 09-23-2023 End: 09-23-2023 ambulatory Nilton Ding Other [facility] Other Start: 09-23-2023 Patient encounter procedure Nilton Ding [facility] Start: 05-25-2023 End: 05-25-2023 ambulatory Nilton Ding Other [facility] Other Start: 05-25-2023 Office outpatient vi sit 15 minutes Nilton Ding [facility] Start: 04-15-2023 End: 04-15-2023 ambulatory Nilton Ding Other [facility] Other Start: 04-15-2023 Office outpatient vi sit 25 minutes Nilton Ding [facility] Start: 12-14-2022 End: 12-14-2022 ambulatory Nilton Ding Other [facility] Other Start: 12-14-2022 Telephone encounter Nilton Ding [facility] Start: 04-30-2022 Adult health examination Ricardo geraldine Ding Other [facility] Other Start: 12-30-2021 End: 12-31-[address] NILTON DING Facility:[facility] Start: 12-25-2021 End: 12-26-2021 ambulatory SAV RODRÍGUEZ Facility:[facility] Start: 05-18-2021 End: 05-19-[address] NILTON DING Facility:[facility] Procedures Date Procedure Procedure Detail Performing Clinician Start: 01-18-2025 DESTRUCTION OF LESION E gurpreet Howard MD Work Phone: Start: 10-15-2024 Gluc bld gluc mntr d ev cleared fda spec home use Sav Rodríguez MD Work Phone: Start: 09-24-2024 X-ray of both knees, four views Nilton Ding DO Work Phone: Start: 09-11-2024 SKIN / NAIL BIOPSY Farrukh Howard MD Work Phone: Start: 09-11-2024 CRYOTHERAPY SKIN LESION Jackelyn Howard MD Work Phone: Start: 06-29-2024 Radiography of thora cic spine DO Nilton Ding Work Phone: Start: 06-29-2024 X-ray of lumbar spin e, four views DO Nilton Ding Work Phone: Start: 05-08-2021 Depression screening Be ally Ding Other Start: 02-20-2018 Screening for osteoporosis Nilton Ding Other Plan of Treatment Date Care Activity Detail Author Start: 09-11-2025 End: 09-11-2025 Patient encounter procedure 09/11/2025 1:35 PM EST [facility] [address] [place] [address] Jackelyn Howard MD [address] [place], [place] [id number] [facility] Start: 02-26-2025 End: 02-26-2025 Patient encounter procedure 02/26/2025 2:10 PM EDT Office Visit [facility] [address] [place] [id number] Sav Rodríguez MD [address] [place] [address] [facility] Start: 01-21-2025 End: 01-21-2025 Patient encounter procedure 01/21/2025 2:30 PM EDT Office Visit [facility] [address] [place] [address] Sav Rodríguez MD [address] [place] [address] [facility] Start: 01-18-2025 End: 01-18-2025 Patient encounter procedure 01/18/2025 12:30 PM EDT Office Visit [facility] [address] [place] [address] Jackelyn Howard MD [address] [place], [place] [id number] Arrived [facility] Comment on above: Arrived Start: 11-07-2024 End: 11-07-2024 Patient encounter procedure 11/07/2024 1:20 PM EST Office Visit [facility] [address] [place] [address] Jackelyn Howard MD [address] [place] [address] [facility] Start: 10-15-2024 End: 10-15-2024 Patient encounter procedure 10/15/2024 2:40 PM EST Office Visit [facility] [address] [place] [address] Sav Rodríguez MD [address] [place] [address] Type 2 diabetes mellitus with hyperglycemia, with long-term current 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 ([facility]) [facility] Comment on above: Type 2 diabetes mellitus with hyperglyce ashleigh, with long-term current 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 (CMS/HCC) Start: 10-15-2024 End: 10-15-2025 Lipid 1996 panel - Serum or Plasma Lipid panel Lab Routine Type 2 diabetes mellitus with hyperglycemia, with long-term current 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 (CMS/HCC) Expected: 10/15/2024 (Approximate), Expires: 10/15/2025 [facility] Work Phone: Comment on above: Expected: 10/15/2024 (Approximate), Expi res: 10/15/2025 Start: 10-15-2024 End: 10-15-2025 Renal function panel Renal function panel Lab Routine Type 2 diabetes mellitus with hyperglycemia, with long-term current 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 ([facility]) Expected: 10/15/2024 (Approximate), Expires: 10/15/2025 [facility] Comment on above: Expected: 10/15/2024 (Approximate), Expi res: 10/15/2025 Start: 10-01-2024 End: 10-01-2024 Patient encounter procedure 10/01/2024 1:50 PM EST Office Visit [facility] [address] [place] [address] Sav Rodríguez MD [address] [place] [address] [facility] Start: 09-11-2024 End: 09-11-2024 Patient encounter procedure 09/11/2024 3:05 PM EST Office Visit [facility] [address] [place] [address] Jackelyn Howard MD [address] [place] [address] Arrived [facility] Comment on above: Arrived Start: 06-26-2024 Patient referral [facility] Work Phone: Start: 06-24-2024 Influenza vaccination Influenza Vaccine (#1) [facility] Start: 05-24-2024 Patient referral [facility] Work Phone: Comprehensive metabo lic 2000 panel - Serum or Plasma [facility] Dermatopathology exam Dermatopat hology exam Pathology and Cytology Timed Neoplasm of unspecified behavior of bone, soft tissue, and skin Release Upon Ordering for 1 Occurrences starting 09/11/2024 [facility] Work Phone: Comment on above: Release Upon Ordering for 1 Occurrences starting 09/11/2024 Patient referral [facility] Work Phone: XR Knee - bilateral 4 Views [facility] XR Lumbar spine 4 Views [facility] XR Thoracic spine 3 Views [facility] Immunizations Immunization Date Immunization Notes Care Provider Sharona pughrobert 09-23-2023 influenza, high dose seasonal, preservative-free Nilton Ding Other [facility] [employer] Other 09-23-2023 influenza virus vaccine, unspecified formulation [facility] 08-09-2022 Influenza vaccine, quadrivalent, adjuvanted [facility] 08-09-2022 influenza virus vaccine, split virus (incl. purified surface antigen) Nilton Ding Other [facility] [employer] Other 08-09-2022 influenza virus vaccine, unspecified formulation [facility] 08-14-2021 influenza virus vaccine, split virus (incl. purified surface antigen) Nilton Ding Other [facility] [employer] Other 08-14-2021 influenza virus vaccine, unspecified formulation [facility] 04-17-2021 COVID-19 Vaccine Moderna - Documentation Purposes Only Nilton Ding Other [facility] 03-20-2021 COVID-19 mRNA-1273 (Moderna) [facility] 08-06-2020 influenza virus vaccine, split virus (incl. purified surface antigen) Nilton Ding Other [facility] [employer] Other 08-06-2020 influenza virus vaccine, unspecified formulation [facility] 07-09-2019 Seasonal trivalent influenza vaccine, adjuvanted, preservative free [facility] 01-10-2019 diphtheria, tetanus toxoids and acellular pertussis vaccine, unspecified formulation Nilton Ding Other [facility] 02-20-2018 pneumococcal conjuga te vaccine, 13 valent Nilton Ding Other [facility] 11-17-2016 influenza, seasonal, injectable, preservative free [facility] 07-27-2014 tetanus and diphther ia toxoids, adsorbed, preservative free, for adult use (5 Lf of tetanus toxoid and 2 Lf of diphtheria toxoid) Nilton Ding Other [facility] 09-01-2005 pneumococcal polysaccharide vaccine, 23 valent Nilton Ding Other [facility] 07-28-2005 tetanus and diphther ia toxoids, adsorbed, preservative free, for adult use (5 Lf of tetanus toxoid and 2 Lf of diphtheria toxoid) Nilton Ding Other [facility] Payers Date Payer Category Payer Medicare (Managed Care) RENETTA RAMIREZ [facility] [id number] 2018 Unknown [id number] 2017 Medicaid [place]ICA[place] [id number] 2003 Medicare MEDICARE [id number] 1959 Medicaid [id number] 1959 Unknown [id number] 1938 Unknown [id number] 1938 Unknown [id number] 593 1938 Unknown [id number] 593 1938 Unknown [id number] 1938 Unknown [id number] 1259 1938 Unknown [id number] [id number] 1938 Unknown [id number] 1259 Medicare Medicare [id number] Social History Date Type Detail Facility Start: 08-02-2023 End: 01-18-2025 Sex Assigned At [facility] [employer] Other Start: 05-16-2023 End: 01-23-2024 Tobacco smoking status NHIS Never smoked tobacco (finding) [facility] Start: 1940 Sex Assigned At Female F [facility] Start: 09-07-2024 End: 01-15-2025 Sex Female (finding) [facility] Start: 05-16-2023 Tobacco use and exposure Smokeless tobacco non-user [facility] Start: 08-02-2023 End: 01-18-2025 Alcoholic beverage intake Defer [facility] Start: 08-02-2023 End: 01-18-2025 History of Social function [facility] Start: 1940 Sex assigned at Not on file N [facility] Medical Equipment Procedure Code Equipment Code Equipment Origin al Text Equipment Identifier Dates Start: 03-08-2017 Clinical Notes 04-15-2023 to 01-18-2025 Jackelyn Howard MD - 01/18/2025 12:30 PM EDT Note Date & Type Note Facility 01-18-2025 History of Presen t illness Narrative Images from the original note were not included. Follow up Diagnosis: Basal Cell Carcinoma Location: [facility] Last visit: 4 months ago Symptoms: red Status: biopsy site healed well Procedure performed: Shave biopsy Date of procedure: 09/11/24 Here today for ED&C. All pertinent medical history, medications, and allergies were reviewed. General Exam: alert, oriented to person, place, and time, normal affect, well appearing Unaccompanied A focused exam completed based on patient reported problems, see below: 1. Basal cell carcinoma of skin of other part of trunk [facility] [place] macule at biopsy site Destr of lesion Complexity: simple Destruction method: electrodesiccation and curettage Informed consent: discussed and consent obtained Informed consent comment: The risks of the procedure were discussed, including, but not limited to risks of scarring, darker or medical malpractice paralegal pigmentary changes, recurrence, infection, and incomplete removal Timeout: patient name, date of , surgical site, and procedure verified Timeout comment: Patient and provider identified site. Site was marked. Photo was taken and shown to patient, patient verified this is the correct site. Procedure prep: Patient was prepped and draped in usual sterile fashion Prep type: Chlorhexidine Anesthesia: the lesion was anesthetized in a standard fashion Anesthetic: 1% lidocaine w/ epinephrine 1-100,000 buffered w/ 8.4% NaHCO3 Curettage performed in three different directions: Yes Electrodesiccation performed over the curetted area: Yes Curettage cycles: 3 Lesion length (cm): 0.7 Lesion width (cm): 0.7 Margin per side (cm): 0 Final wound size (cm): 0.7 Hemostasis achieved with: aluminum chloride Outcome: patient tolerated procedure well with no complications Post-procedure details: wound care instructions given Post-procedure details comment: Post-procedure instructions were given verbally and in writing. The office will be contacted if the lesion fails to resolve despite treatment, or if a side effect develops such as abnormal crusting, scabbing, reddness, discharge, or tenderness. Additional details: Amount of lidocaine used: 3 cc Previous accession number: [id number] Emphasized to return to clinic for any signs of recurrence prior to next visit. Next Visit: as scheduled for next skin check documented in this encounter [facility] 11-02-2024 Evaluation note Diagnosis Onset Date Resolution Primary osteoarthritis of left knee acute November 02, 2024 11:19am Primary osteoarthritis of right knee acute November 02, 2024 11:19am Sacroiliitis acute October 11:19am Lumbar radiculopathy deleted Rafa jerome 2024 11:19am Lumbosacral spondylosis deleted J anuary 2024 11:19am Other chronic pain deleted Lisa y 2024 11:19am Chronic venous insufficiency of lower extremity acute January 15, 2025 2:16pm Hypercholesterolemia acute 2024 2:16pm Hypertension acute January 15, 2025 2:16pm Lumbosacral spondylosis with radiculopathy acute January 15, 2 025 2:16pm Medicare annual wellness visit, subsequent acute January 15 2:16pm Obesity acute January 15 2:16pm Primary osteoarthritis of both knees acute January 15, 2025 2:16pm Type 2 diabetes mellitus with hyperglycemia acute January 15, 2 025 2:16pm [facility] Work Phone: 1(543) 188-982312-23-2024 History of Present illness Narrative* Sav Rodríguez MD - 10/15/2024 2:40 PM EST Usha Gottlieb is a 84 y.o. female Sav Rodríguez MD presents with chief complaint of Diabetes and Follow-up (LABS COMING OVER BUT NOT YOUR ORDERS/A1C 7.5 % MIDDLE July) HPI: Interim history: 09/2024 Followup visit 10/15 for type 2 diabetes. A1c 7.5, bg 161, toujeo 45 units in the morning NovoLog 10 units ac plus ISS#2, Trulicity 0.75 mg weekly. Lab done total cholesterol 274, [id number], LDL 168 can not tolerate statin Interim history: 05/2024 Followup visit 05/28/2024 for type 2 diabetes. A1c 6.7 , bg 194 , toujeo 45 units in the morning NovoLog 10 units ac plus ISS#2, Trulicity 0.75 mg weekly . meter 0-89-11 %, avg 135. Interim history: 02/2024 Followup visit 02/27/2024 for type 2 diabetes. A1c 6.3 , bg 100 , toujeo 45 units in the morning NovoLog 10 units ac plus ISS#2, Trulicity 0.75 mg weekly . meter 0-87-13 %, avg 138. Interim history: 10/2023 Followup visit 10/31/2023 for type 2 diabetes. A1c 7.4 , bg 164 , toujeo 45 units in the morning NovoLog 10 units ac plus ISS#2, Trulicity 0.75 mg weekly . meter 0-89-11%, avg 143. Interim history: 04/2023 Followup visit 05/02/2023 for type 2 diabetes. A1c 6.8, bg 130 , toujeo 45 units in the morning NovoLog 10 units ac plus ISS#2. meter 0-89-11%, avg 138. lab on 03/2023 GFR>60, TC 249, TG 195, HDL 53, LDL 157, VIT D 31, AL/CR 24. Interim history: 12/2022 Followup visit 01/03/2023 for type 2 diabetes. A1c 6.7, bg 115 , toujeo 45 units in the morning NovoLog 10 to 15 units ac plus ISS#2. meter 79-21%, avg 154. Interim history: 08/2022 Followup visit 09/06/2022 for type 2 diabetes. A1c 6.8, bg 120 , toujeo 45 units in the morning NovoLog 10 plus ISS#2. meter 166-291 avg 164. Interim history: 04/2022 Followup visit 05/17/2022 for type 2 diabetes. A1c 6.9, bg 220, toujeo 45 units in the morning NovoLog 10 plus ISS#2. meter 87-232 avg 145 . still does not want to be on any statin or zetia Interim history: 12/2021 Followup visit 01/13/2022 for type 2 diabetes. A1c 7.2, bg 212, toujeo 45 units in the morning NovoLog 10 plus ISS#2. meter 85-298 avg 150. lab on 12/2021 GFR>60, TC 241, HDL 53, LDL 139, VIT D 23.does not want to be on any statin or zetia Interim history: 08/2021 Followup visit for type 2 diabetes. A1c 7.5, bg 130, toujeo 45 units in the morning novolig 10 plus ISS#2. meter 90-256 avg 162 Interim history: 05/2021 Followup visit 06/18/2021 for type 2 diabetes. toujeo 45 units in the morning novolig 10-12-15 plus ISS#2. want to cut meal insulin more Interim history: 01/2021 Followup visit 01/28/21 for type 2 diabetes. Last time we stopped the insulin 70/30 and we started her on basal bolus but she just got insulin yesterday so she did not start it because no . She is still doing 70/30, 50 units in the morning, 20 at night. The CGM interpretation looks good, 1% low range, 91% in good range and 8% in high range and average 126. HPI: 12/2020 New patient sent from Dr. Dilan DING for uncontrolled diabetes. A1c 7.2, blood sugar is 110. Labs: GFR49. She has diabetes for 10 years with possible retinopathy and also currently she is on insulin 70//30, 50 units in the morning, 20 units at dinner and blood sugars in acceptable range between 90-210 and total cholesterol 231, triglycerides 261, HDL 41, LDL 137. Cannot use a stain or Zetia, gives her side effects. She has had mastectomy due to breast cancer both sides. Before that, she used to be on Toujeo and she also used Trulicity . She is on mixed insulin. They stopped Trulicity. SUBJECTIVE: MEDICATIONS: Current Outpatient Medications Medication Instructions Diclofenac Sodium 1.6 % gel Apply topically ezetimibe (ZETIA) 10 mg,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 osteoarthritis of right knee Ming roach 2024 11:19am Sacroiliitis November 02, 2024 1 1:19am Chief Complaint Admit Date follow up after PT November 02, 2024 1 1:19am wellness January 15, 2025 2:1 6pm Reason for Visit Admit Date Primary osteoarthritis of left knee Rafa cano 2024 11:19am Primary osteoarthritis of right knee Ming roach 2024 11:19am Sacroiliitis November 02, 2024 1 1:19am Lumbar radiculopathy November 02, 2024 11:19am Lumbosacral spondylosis November 02 11:19am Other chronic pain November 02, 2024 1 1:19am Chronic venous insufficiency of lower ex tremity January 15, 2025 2:16pm Hypercholesterolemia January 15, 2025 2: 16pm Hypertension January 15, 2025 2:1 6pm Lumbosacral spondylosis with radiculopat hy January 15, 2025 2:16pm Medicare annual wellness visit, subseque nt January 15, 2025 2:16pm Obesity January 15, 2025 2:1 6pm Primary osteoarthritis of both knees Mar 2024 2:16pm Type 2 diabetes mellitus with hyperglyce ashleigh January 15, 2025 2:16pm Additional Source Comments INFORMATION SOURCE (unrecogn ized section and content) DATE CREATED AUTHOR 02/19/2021 [facility] DATE CREATED AUTHOR AUTHOR'S ORGANIZ ATION 01/01/2022 [facility] DATE CREATED AUTHOR AUTHOR'S ORGANIZ ATION 07/03/2024 [facility] DATE CREATED AUTHOR AUTHOR'S ORGANIZ ATION 09/26/2024 [facility] DATE CREATED AUTHOR AUTHOR'S ORGANIZ ATION 01/19/2025 [facility] EPIC REASON FOR VISIT (unrecogniz ed section and content) Reason Comments Skin Check Reason Comments Diabetes Follow-up LABS COMING OVER BUT NOT YOUR [id number] 7.5 % July Reason Comments Procedure Care Teams (unrecognized sec tion and content) Team Status: Active Member Role Status Dates Nilton Ding DO Primary Care Provider Active Team Status: Inactive Member Role Status Dates Kaelyn Newby DO Primary Care Provider Active Start: January 23, 2024 End: January 23, 2024 Nitlon Ding DO Attending Provider Active Sta rt: January 23, 2024 End: January 23, 2024 Team Status: Inactive Member Role Status Dates Nilton Ding DO Primary Care Provider Active Start: May 24, 2024 End: May 24, 2024 Isabel Evans APRN Attending Provider Active Start: May 24, 2024 End: May 24, 2024 Team Status: Inactive Member Role Status Dates Nilton Ding DO Primary Care Provider Active Start: June 26, 2024 End: June 26, 2024 Isabel Evans APRN Attending Provider Active Start: June 26, 2024 End: June 26, 2024 Team Status: Inactive Member Role Status Dates Nilton Ding DO Primary Care Provider Active Start: June 29, 2024 End: June 29, 2024 Isabel Evans APRN Attending Provider Active Start: June 29, 2024 End: June 29, 2024 Team Status: Inactive Member Role Status Dates Nilton Ding DO Primary Care Provider Active Start: July 09, 2024 End: July 09, 2024 Phillip Fox MD Attending Provider Active Sta rt: July 09, 2024 End: July 09, 2024 Team Status: Active Member Role Status Dates Nilton Ding DO Primary Care Provider Active Start: July 17, 2024 Phillip Fox MD Attending Provider Active Sta rt: July 17, 2024 Team Status: Inactive Member Role Status Dates Nilton Ding DO Primary Care Provider Active Start: July 26, 2024 End: July 26, 2024 Phillip Fox MD Attending Provider Active Sta rt: July 26, 2024 End: July 26, 2024 Team Status: Inactive Member Role Status Dates Nilton Ding DO Primary Care Provider Active Start: August 02, 2024 End: August 02, 2024 Phillip Fox MD Attending Provider Active Sta rt: August 02, 2024 End: August 02, 2024 Team Status: Active Member Role Status Dates Nilton Ding DO Primary Care Provider Active Start: August 02, 2024 Phillip Fox MD Attending Provider Active Sta rt: August 02, 2024 Team Status: Inactive Member Role Status Dates Nilton Ding DO Primary Care Provider Active Start: September 07, 2024 End: September 07, 2024 Phillip Fox MD Attending Provider Active Sta rt: September 07, 2024 End: September 07, 2024 [employer] Relationship Specialty Start Date End Date Nilton Ding MD [address] [place] [id number] PCP - General Internal Medicine 06/13/24 [employer] Relationship Specialty Start Date End Date Nilton Ding MD [address] [place] [id number] PCP - General Internal Medicine 06/13/24 [employer] Relationship Specialty Start Date End Date Nilton Ding MD [address] [place] [address] PCP - General Internal Medicine 06/13/24 [employer] Relationship Specialty Start Date End Date Nilton Ding MD [address] [place] [address] PCP - General Internal Medicine 06/13/24 Team Status: Inactive Member Role Status Dates Nilton Ding DO Primary Care Provider Active Start: September 24, 2024 End: September 24, 2024 Phillip Fox MD Attending Provider Active Sta rt: September 24, 2024 End: September 24, 2024 Team Status: Inactive Member Role Status Dates Nilton Ding DO Primary Care Provider Active Start: November 02, 2024 End: November 02, 2024 Phillip Fox MD Attending Provider Active Sta rt: November 02, 2024 End: November 02, 2024 Team Status: Inactive Member Role Status Dates Nilton Ding DO Primary Care Provide r, Attending Provider Active Start: January 15, 2025 End: January 15, 2025 [employer] Relationship Specialty Start Date End Date Nilton Ding MD [address] [place] [id number] PCP - General Internal Medicine 06/13/24 [employer] Relationship Specialty Start Date End Date Nilton Ding MD [address] [place] [address] PCP - General Internal Medicine 06/13/24 Goals (unrecognized section and content) Goals may [...] BE BASED ON THE PRIMARY CLINICAL RECORDS. [facility]. provides no warranty or guarantee of the accuracy or completeness of information in this document.
[2025-02-07 15:10] LABS: Basophils Percent Auto 0.3 % (0.2-2.0); Eosinophils Absolute Auto 0.1 10^3/uL (0.0-0.7); Eosinophils Percent Auto 1.1 % (0.9-7.0); Hematocrit 41.1 % (36.0-48.0); Hemoglobin 13.7 g/dL (12.0-16.0); Immature Granulocytes Abs Auto 0.02 10^3/uL (0.00-0.03); Immature Granulocytes Pct Auto 0.2 % (0.0-0.5); Lymphocytes Absolute Auto 3.1 10^3/uL (1.2-3.8); Lymphocytes Percent Auto 27.8 % (20.5-60.0); Mean Corpuscular HGB Conc 33.3 g/dL (29.9-35.2); Mean Corpuscular Hemoglobin 30.6 pg (26.7-34.0); Mean Corpuscular Volume 91.7 fL (81.0-99.0); Mean Platelet Volume 9.3 fL (9.5-13.5); Monocytes Absolute Auto 0.9 10^3/uL (0.3-0.8); Monocytes Percent Auto 7.9 % (1.7-12.0); Neutrophils Percent Auto 62.7 % (43.0-75.0); Platelet Count 259 10^3/uL (150-450); Red Blood Count 4.48 10^6/uL (4.20-5.40); Red Cell Distribution Width 13.1 % (11.0-15.0); White Blood Count 11.1 10^3/uL (4.0-11.0)
[2025-02-07 15:48] LABS: Alanine Aminotransferase 11 U/L (14-59); Albumin Level 3.5 g/dL (3.4-5.0); Alkaline Phosphatase 134 U/L (46-116); Anion Gap 11.3; Aspartate Amino Transferase 18 U/L (15-37); BUN Creatinine Ratio 18.9; Bilirubin Total 0.5 mg/dL (0.2-1.0); Calcium 9.2 mg/dL (8.5-10.1); Carbon Dioxide 26.4 mmol/L (21.0-32.0); Chloride 107 mmol/L (98-107); Estimated GFR (African America >60 (>=60 mL/min/1.73m^2); Estimated GFR (Non-African Ame 56 (>=60 mL/min/1.73m^2); Globulin 3.5 g/dL; Glucose 89 mg/dL (74-106); Potassium 3.7 mmol/L (3.5-5.1); Sodium 141 mmol/L (136-145)
== END 2025-02-07 14:12 | disposition home or self-care (01) ==
PROVIDERS: PCP Internal Medicine; Visit Provider Internal Medicine
DX: E55.9 Vitamin D deficiency, unspecified (principal); E11.65 Type 2 diabetes mellitus with hyperglycemia; Z79.4 Long term (current) 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; E78.00 Pure hypercholesterolemia, unspecified; I10 Essential (primary) hypertension
CPT/HCPCS: 36415; 80053; 82306; 84100; 85025

== ENCOUNTER 2025-02-07 14:24 | Outpatient (OUT) | payer MEDICARE, MEDICAID, SELFPAY ==
[2025-02-07 15:51] LABS: Phosphorus 3.2 mg/dL (2.6-4.7)
== END 2025-02-07 14:25 | disposition home or self-care (01) ==
LOC: LAB 14:26
PROVIDERS: PCP Internal Medicine; Visit Provider Internal Medicine
DX: E11.65 Type 2 diabetes mellitus with hyperglycemia (principal); Z79.4 Long term (current) 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
CPT/HCPCS: 36415; 80061; 84100

== ENCOUNTER 2025-02-14 12:00 | Outpatient (OUT) | payer MEDICARE, MEDICAID, SELFPAY ==
[2025-02-14 12:48] LABS: Chol HDL Ratio 4.6; Cholesterol 248 mg/dL (<=200); HDL Cholesterol 54 mg/dL (40-60); Triglycerides 192 mg/dL (<=150); VLDL CHOLESTEROL 38.4 mg/dL
== END 2025-02-14 12:01 | disposition home or self-care (01) ==
LOC: LAB 12:01
PROVIDERS: PCP Internal Medicine; Visit Provider Internal Medicine
DX: E11.65 Type 2 diabetes mellitus with hyperglycemia (principal); Z79.4 Long term (current) 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
CPT/HCPCS: 36415; 80061